=== PATIENT | female | born 1970 | race Caucasian/White ===

== ENCOUNTER 2016-08-07 03:12 | Inpatient (IN) | payer MEDICARE, OTHER ==
--- NOTE | 2016-08-07 03:35 | Emergency Department Record ---
History of Present Illness - General Chief complaint: Lower Extremity Pain Stated complaint: LEFT LEG PAIN Time Seen by Provider: 08/07/16 03:21 Source: Patient - History of Present Illness Initial comments: The patient states that she and her have been sick over the past 2 weeks with the same illness, mainly vomiting and diarrhea. On 08-03-16 she vomited, on 08-04-16 she vomited, and on 08-05 she developed redness on her left lower leg. She has not been able to eat much and her blood sugar began to read "high" when she checked it at that time also. Her states that typically her blood sugar runs in the 100's. She denies f,c,cough, st, abdominal pain, ear pain. She states she has been in a wound clinic in the past in the [facility] in the past. Location: Left, Lower Leg - Related Data Home Medications Medication Instructions Recorded Confirmed Last Taken Amlodipine Besylate [Amlodipine 10 mg PO DAILY 04/06/14 08/07/16 08/06/16 Besylate] Atorvastatin Calcium [Lipitor] 40 mg PO DAILY 04/06/14 08/07/16 08/06/16 Carvedilol [Carvedilol] 25 mg PO BID 04/06/14 08/07/16 08/06/16 Citalopram Hydrobromide 20 mg PO DAILY 04/06/14 08/07/16 08/06/16 [Citalopram HBr] Furosemide [Furosemide] 40 mg PO DAILY 04/06/14 08/07/16 08/06/16 Levothyroxine Sodium 75 mcg PO DAILY 04/06/14 08/07/16 08/06/16 Losartan Potassium [Losartan 100 mg PO DAILY 04/06/14 08/07/16 08/06/16 Potassium] Spironolactone [Spironolactone] 25 mg PO DAILY 04/06/14 08/07/16 08/06/16 Aspirin [Ecotrin] 325 mg PO DAILY 11/30/14 08/07/16 08/06/16 Loratadine [Claritin] 10 mg PO DAILY 11/30/14 08/07/16 08/06/16 Trazodone HCl [Desyrel] 50 mg PO QHS 11/30/14 08/07/16 08/06/16 Multivitamin [Multi-Vitamin Daily] 1 tab PO DAILY 01/25/15 08/07/16 08/06/16 Allergies Allergy/AdvReac Type Severity Reaction Status Date / Time azithromycin Allergy DIFFICULTY Verified 01/25/15 00:15 BREATHING cephalexin monohydrate Allergy DIFFICULTY Verified 01/25/15 00:15 [From Keflex] BREATHING codeine Allergy DIFFICULTY Verified 01/25/15 00:15 BREATHING Review of Systems Reviewed: No additional complaints except as noted below Constitutional: Reports: As per HPI. Denies: Chills, Fever, Malaise, Night sweats, Weakness, Weight change Eyes: Reports: As per HPI. Denies: Eye discharge, Eye pain, Photophobia, Vision change ENT: Reports: As per HPI. Denies: Congestion, Dental pain, Ear pain, Epistaxis , Hearing loss, Throat pain Respiratory: Reports: As per HPI. Denies: Cough, Dyspnea, Hemoptysis, Stridor, Wheezes Cardiovascular: Reports: As per HPI. Denies: Arrhythmia, Chest pain, Dyspnea on exertion, Edema, Murmurs, Orthopnea, Palpitations, Paroxysmal nocturnal dyspnea, Rheumatic Fever, Syncope Endocrine: Reports: As per HPI. Denies: Fatigue, Heat or cold intolerance, Polydipsia, Polyuria Gastrointestinal: Reports: As per HPI. Denies: Abdominal pain, Constipation, Diarrhea, Hematemesis, Hematochezia, Melena, Nausea, Vomiting Genitourinary: Reports: As per HPI. Denies: Abnormal menses, Discharge, Dyspareunia, Dysuria, Frequency, Hematuria, Incontinence, Retention, Urgency Musculoskeletal: Reports: As per HPI. Denies: Arthralgia, Back pain, Gout, Joint swelling, Myalgia, Neck pain Skin: Reports: As per HPI. Denies: Bruising, Change in color, Change in hair/ nails, Lesions, Pruritus, Rash Neurological: Reports: As per HPI. Denies: Abnormal gait, Confusion, Headache, Numbness, Paresthesias, Seizure, Tingling, Tremors, Vertigo, Weakness Psychiatric: Reports: As per HPI. Denies: Anxiety, Auditory hallucinations, Depression, Homicidal thoughts, Suicidal thoughts, Visual hallucinations Hematological/Lymphatic: Reports: As per HPI. Denies: Anemia, Blood Clots, Easy bleeding, Easy bruising, Swollen glands Past Medical History - SOCIAL HISTORY Smoking Status: Never smoker - RESPIRATORY Hx Respiratory Disorders: No - CARDIOVASCULAR Hx Cardio Disorders: Yes Hx Hypertension: Yes - NEURO Hx Neuro Disorders: Yes Hx CVA: Yes (2013) - GI Hx GI Disorders: No Hx Reflux: No - Hx Genitourinary Disorders: No - ENDOCRINE Hx Endocrine Disorders: Yes Hx Diabetes: Yes Hx Thyroid Disease: Yes - MUSCULOSKELETAL Hx Musculoskeletal Disorders: Yes Hx Arthritis: Yes - PSYCH Hx Psych Problems: Yes Hx Anxiety: Yes Hx Depression: Yes - HEMATOLOGY/ONCOLOGY Hx Hematology/Oncology Disorders: No Family Medical History Hx Diabetes: Father Hx Heart Disease: Father, Mother Physical Exam - General General Appearance: Alert, Oriented x3, Cooperative, No acute distress, Other ( morbid obesity) - Head Head exam: Normal inspection - Eye Eye exam: Normal appearance, PERRL Pupils: Normal accommodation - ENT ENT exam: Normal exam, Mucous membranes moist, Normal external ear exam, Normal orophraynx, TM's normal bilaterally Ear exam: Normal external inspection. negative: External canal tenderness Nasal Exam: Normal inspection. negative: Discharge, Sinus tenderness Mouth exam: Normal external inspection, Tongue normal Teeth exam: Normal inspection. negative: Dental caries Throat exam: Normal inspection. negative: Tonsillar erythema, Tonsillar exudate - Neck Neck exam: Normal inspection, Full ROM. negative: Tenderness - Respiratory Respiratory exam: Normal lung sounds bilaterally. negative: Respiratory distress - Cardiovascular Cardiovascular Exam: Regular rate, Normal rhythm, Normal heart sounds - GI/Abdominal GI/Abdominal exam: Soft, Normal bowel sounds. negative: Tenderness - Rectal Rectal exam: Deferred - exam: Deferred - Extremities Extremities exam: Normal inspection, Full ROM, Normal capillary refill, Other ( left lower leg with warmth, erythema, swelling. ). negative: Tenderness - Back Back exam: Reports: Normal inspection, Full ROM. Denies: Muscle spasm, Rash noted, Tenderness - Neurological Neurological exam: Alert, Normal gait, Oriented X3, Reflexes normal - Psychiatric Psychiatric exam: Normal affect, Normal mood - Skin Skin exam: Dry, Intact, Normal color, Warm Course - Reevaluation(s) Reevaluation #1: The reports that he has been the one to wrap her legs with special wrapping and sulfazalazine cream, but since he has been sick he has been unable to do it in the past few weeks. 08/07/16 03:45 Reevaluation #2: Patient is in agreement with admission. 08/07/16 05:04 Medical Decision Making - Lab Data Result diagrams: 08/07/16 03:49 08/07/16 03:49 Disposition Disposition: Admit Clinical Impression: Cellulitis of left lower extremity Disposition: Still a Patient at [facility] Decision to Admit: Admit from ER Decision to Admit Date: 08/07/16 Decision to Admit Time: 05:18 Accepting Physician: /Natalia Chowdhury Time Discussed w/Accepting Physician: 06:45 Condition: (1) Good
[2016-08-07 04:09] LABS: HEMATOCRIT 32.7 % (35.0-47.0); HEMOGLOBIN 10.7 gm/dl (11.6-16.0); MEAN CELL VOLUME 85.8 fl (81-97); MEAN CORPUSCULAR HGB CONC 32.7 g/dl (32-36); PLATELET COUNT 242 K/uL (130-400); RED BLOOD COUNT 3.81 M/uL (3.80-5.40); RED CELL DISTRIBUTION WIDTH 13.8 % (11.5-14.5); WHITE BLOOD COUNT W/O DIFF 12.2 K/uL (4.2-12.2)
[2016-08-07] MEDS ORDERED: 0.9 % SODIUM CHLORIDE 1,000 ML BAG IV ONE (04:15)
[2016-08-07] MEDS ORDERED: CLINDAMYCIN 600MG/4ML VIAL 600 MG in 0.9 % SODIUM CHLORIDE 100ML 100 ML IV ONE (04:18)
[2016-08-07 04:22] LABS: ACETONE,SERUM NEGATIVE (NEGATIVE)
[2016-08-07 04:27] LABS: URINE APPEARANCE CLEAR; URINE BILIRUBIN NEGATIVE (NEGATIVE); URINE BLOOD NEGATIVE (NEGATIVE); URINE COLOR YELLOW; URINE GLUCOSE (UA) NEGATIVE (NEGATIVE); URINE KETONE TRACE (NEGATIVE); URINE LEUKOCYTE ESTERASE NEGATIVE (NEGATIVE); URINE NITRITE NEGATIVE (NEGATIVE); URINE UROBILINOGEN 0.2 E.U./dL (0.20 - 1.00)
[2016-08-07 04:29] LABS: BLOOD UREA NITROGEN 26 mg/dL (7-17); CREATININE 1.3 mg/dL (0.52-1.04); EST GLOMERULAR FILTRATION RATE 46 ml/min; GLUCOSE,RANDOM 174 mg/dL (70-110)
[2016-08-07 04:30] LABS: LACTIC ACID 1.3 mmol/L (0.7-2.1); TROPONIN I < 0.012 ng/mL (0.00-0.034)
[2016-08-07] MEDS ORDERED: MORPHINE SULFATE 5 MG/ML PFS IVP ONE ×3 (04:54→11:05)
[2016-08-07] MEDS ORDERED: AL HYDROX/MAG HYDROX 30ML UD PO PRN (06:14)
[2016-08-07] MEDS ORDERED: CLINDAMYCIN IV SCH (06:14)
[2016-08-07] MEDS ORDERED: ACETAMINOPHEN 500 MG TABLET PO PRN (06:14)
[2016-08-07] MEDS ORDERED: SODIUM CHLORIDE 0.9% IV SCH (06:14)
[2016-08-07] MEDS: NYSTATIN 15 GM POWDER TP PRN ×2 (06:46→20:14)
[2016-08-07] MEDS ORDERED: MORPHINE SULFATE 5 MG/ML PFS IVP PRN (07:43)
[2016-08-07] MEDS: NOVOLOG FLEXPEN (INSULIN ASPART) 100 UNITS/ML SQ SCH ×3 (08:53→17:50)
[2016-08-07] MEDS: SPIRONOLACTONE 25 MG TAB PO SCH (10:47)
[2016-08-07] MEDS: MULTIVITAMINS/MINERALS TABLET PO SCH (10:47)
[2016-08-07] MEDS: LORATADINE 10 MG TABLET PO SCH (10:47)
[2016-08-07] MEDS: CARVEDILOL 12.5 MG TABLET PO SCH ×2 (10:48→22:45)
[2016-08-07] MEDS: ASPIRIN 325 MG TAB ENTERIC-COATED PO SCH (10:48)
[2016-08-07] MEDS: LOSARTAN POTASSIUM 100 MG TABLET PO SCH (10:49)
[2016-08-07] MEDS: AMLODIPINE BESYLATE 5MG TAB PO SCH (10:49)
[2016-08-07] MEDS: FUROSEMIDE 40 MG TABLET PO SCH (10:49)
[2016-08-07] MEDS: ATORVASTATIN 20 MG TABLET PO SCH (10:50)
[2016-08-07] MEDS: ENOXAPARIN 40 MG/0.4 ML SYR SQ SCH (10:50)
[2016-08-07] MEDS: CITALOPRAM 20 MG TABLET PO SCH (11:33)
[2016-08-07] MEDS: LEVOTHYROXINE SODIUM 75 MCG TABLET PO SCH (11:34)
[2016-08-07] MEDS: PANTOPRAZOLE SODIUM 40 MG TABLET PO SCH (11:34)
[2016-08-07] MEDS: CLINDAMYCIN 600MG/50ML PREMIX 50 ML IVPB SCH ×2 (12:28→20:01)
[2016-08-07] MEDS: MORPHINE SULFATE 5 MG/ML PFS IVP PRN ×5 (12:28→20:00)
--- NOTE | 2016-08-07 15:08 | History & Physical ---
History of Present Illness - Date of Service Date of Service for History & Physical: 08/07/16 - History of Present Illness Admitting Diagnosis: cellulitis left lower extremity; morbid obesity; diabetes History of Present Illness: 46 yo female admitted for cellulitis of LLE. PMHx of morbid obesity, IDDM type 2, hypertension, hyperlipidemia, hypothyroidism, seasonal allergies, depression , CVA in 2013 (deficits include declined eye sight and difficulty w/ comprehending), h/o DVT, history of LE cellulitis (patient believes last treatment for cellulitis was this past fall at [facility] wound clinic). Patient is A&O to person, place, date during exam though states her knows her health history better. Patient states that her and her have been sick for the past two weeks. Symptoms include N/V, diarrhea, abdominal cramping. Aggravate by nothing. Alleviated on it's own. Her last episode of vomiting was Monday. Patient's symptoms resolved, however she began to notice LLE swelling and redness. Noting this, she had her bring her to the ER. Her typically wraps both LE's, though for the past week or two, he's been sick and has not been doing this. Upon presentation to the ER, VSS. WBC 12.2, hgb 10.7, hct 32.7, plt 242, sodium 136, potassium 3.9, BUN 26, Cr. 1.3, glucose 174, lactic acid 1.3, troponin neg, BNP 815. UA negative for infection. LLE u/s ordered, however unable to be performed until monday. Noting LLE edema and erythema, patient admitted for IV antibiotics and further medical management. This morning, patient is lying in bed comfortably with LE's elevated. She denies fever, chills, n/v, abd pain, cough, sob, cp, dysuria, change in bowel or bladder functions, or headache. She admits to fatigue, contributing this to a long night in the ER. Aside from LLE edema/erythema, her other symptoms have resolved. She states she's had two episodes of lower extremity cellulitis similar to this in the past. Per patient, 6-7 years ago she was admitted to [facility] wound clinic and then this past fall at [facility], in [place], wound clinic. No recent travel or change in her medications. Sick contact includes her w/ a GI bug. PCP: Rosangela Butler M.D. Travel Screening - Travel/Exposure Within Last 30 Days Have you traveled within the last 30 days?: No - Travel/Exposure Within Last Year Have you traveled outside the [place] in the last year?: No - Additonal Travel Details Have you been exposed to anyone with a communicable illness?: No - Travel Symptoms Symptom Screening: None Review of Systems Constitutional: Reports: As per HPI. Denies: Chills, Fever, Malaise, Night sweats, Weakness, Weight change Eyes: Reports: As per HPI. Denies: Eye discharge, Eye pain, Photophobia, Vision change ENT: Reports: As per HPI. Denies: Congestion, Dental pain, Ear pain, Epistaxis , Hearing loss, Throat pain Respiratory: Reports: As per HPI. Denies: Cough, Dyspnea, Hemoptysis, Stridor, Wheezes Cardiovascular: Reports: As per HPI. Denies: Arrhythmia, Chest pain, Dyspnea on exertion, Edema, Murmurs, Orthopnea, Palpitations, Paroxysmal nocturnal dyspnea, Rheumatic Fever, Syncope Endocrine: Reports: As per HPI. Denies: Fatigue, Heat or cold intolerance, Polydipsia, Polyuria Gastrointestinal: Reports: As per HPI. Denies: Abdominal pain, Constipation, Diarrhea, Hematemesis, Hematochezia, Melena, Nausea, Vomiting Genitourinary: Reports: As per HPI. Denies: Abnormal menses, Discharge, Dyspareunia, Dysuria, Frequency, Hematuria, Incontinence, Retention, Urgency Musculoskeletal: Reports: As per HPI. Denies: Arthralgia, Back pain, Gout, Joint swelling, Myalgia, Neck pain Skin: Reports: As per HPI. Denies: Bruising, Change in color, Change in hair/ nails, Lesions, Pruritus, Rash Neurological: Reports: As per HPI. Denies: Abnormal gait, Confusion, Headache, Numbness, Paresthesias, Seizure, Tingling, Tremors, Vertigo, Weakness Psychiatric: Reports: As per HPI. Denies: Anxiety, Auditory hallucinations, Depression, Homicidal thoughts, Suicidal thoughts, Visual hallucinations Hematological/Lymphatic: Reports: As per HPI. Denies: Anemia, Blood Clots, Easy bleeding, Easy bruising, Swollen glands Past Medical History - SOCIAL HISTORY Smoking Status: Never smoker Alcohol Use: None Drug Use: None - RESPIRATORY Hx Respiratory Disorders: No - CARDIOVASCULAR Hx Cardio Disorders: Yes Hx Hypertension: Yes - NEURO Hx Neuro Disorders: Yes Hx CVA: Yes (2013) - GI Hx GI Disorders: No Hx Reflux: Yes - Hx Genitourinary Disorders: No - ENDOCRINE Hx Endocrine Disorders: Yes Hx Diabetes: Yes Hx Thyroid Disease: Yes - MUSCULOSKELETAL Hx Musculoskeletal Disorders: Yes Hx Arthritis: Yes - PSYCH Hx Psych Problems: Yes Hx Anxiety: Yes Hx Depression: Yes - HEMATOLOGY/ONCOLOGY Hx Hematology/Oncology Disorders: No Family Medical History Any Significant Family History?: Yes Hx Dementia: Father Hx Diabetes: Father Hx Heart Disease: Father, Mother H&P Meds/Allergies - Allergies Allergies: Allergies Allergy/AdvReac Type Severity Reaction Status Date / Time azithromycin Allergy DIFFICULTY Verified 01/25/15 00:15 BREATHING cephalexin monohydrate Allergy DIFFICULTY Verified 01/25/15 00:15 [From Keflex] BREATHING codeine Allergy DIFFICULTY Verified 01/25/15 00:15 BREATHING - Home Medications Home Medications Medication Instructions Recorded Confirmed Last Taken Amlodipine Besylate [Amlodipine 10 mg PO DAILY 04/06/14 08/07/16 08/06/16 Besylate] Atorvastatin Calcium [Lipitor] 40 mg PO DAILY 04/06/14 08/07/16 08/06/16 Carvedilol [Carvedilol] 25 mg PO BID 04/06/14 08/07/16 08/06/16 Citalopram Hydrobromide 40 mg PO DAILY 04/06/14 08/07/16 08/06/16 [Citalopram HBr] Furosemide [Furosemide] 40 mg PO DAILY 04/06/14 08/07/16 08/06/16 Levothyroxine Sodium 75 mcg PO DAILY 04/06/14 08/07/16 08/06/16 Losartan Potassium [Losartan 100 mg PO DAILY 04/06/14 08/07/16 08/06/16 Potassium] Spironolactone [Spironolactone] 25 mg PO DAILY 04/06/14 08/07/16 08/06/16 Aspirin [Ecotrin] 325 mg PO DAILY 11/30/14 08/07/16 08/06/16 Loratadine [Claritin] 10 mg PO DAILY 11/30/14 08/07/1617 Trazodone HCl [Desyrel] 200 mg PO QHS 11/30/14 08/07/16 08/06/16 Multivitamin [Multi-Vitamin Daily] 1 tab PO DAILY 01/25/15 08/07/16 08/06/16 Hydrocodone/Acetaminophen [Kirby 1 tab PO BID PRN 08/07/16 08/07/16 08/06/16 7.5mg/325mg] Omeprazole 20 mg PO DAILY 08/07/16 08/07/16 08/06/16 - Active Medications Active Medications: Current Medications Acetaminophen (Tylenol 500mg Tab) 500 mg PO Q6H PRN PRN Reason: PAIN/TEMP Al Hydroxide/Mg Hydroxide (Maalox) 30 ml PO Q4H PRN PRN Reason: GI UPSET Amlodipine Besylate (Norvasc) 10 mg PO DAILY [facility] Last Admin: 08/07/16 10:49 Dose: 10 mg Aspirin (Ecotrin (Ec)) 325 mg PO DAILY [facility] Last Admin: 08/07/16 10:48 Dose: 325 mg Atorvastatin Calcium (Lipitor) 40 mg PO DAILY [facility] Last Admin: 08/07/16 10:50 Dose: 40 mg Carvedilol (Coreg) 25 mg PO BID [facility] Last Admin: 08/07/16 10:48 Dose: 25 mg Citalopram Hydrobromide (Celexa) 20 mg PO DAILY [facility] Last Admin: 08/07/16 11:33 Dose: 20 mg Enoxaparin Sodium (Lovenox) 40 mg SQ DAILY [facility] Last Admin: 08/07/16 10:50 Dose: 40 mg Furosemide (Lasix) 40 mg PO DAILY [facility] Last Admin: 08/07/16 10:49 Dose: 40 mg Clindamycin Phosphate (Cleocin 600 [id number]) 50 mls @ 100 mls/hr IVPB Q8H [facility] Last Admin: 08/07/16 12:28 Dose: 100 mls/hr Insulin Aspart (Novolog Flexpen) 1 unit SQ TIDINS [facility] PRN Reason: Protocol Last Admin: 08/07/16 12:30 Dose: 10 unit Levothyroxine Sodium (Synthroid) 75 mcg PO DAILYTHY [facility] Last Admin: 08/07/16 11:34 Dose: 75 mcg Loratadine (Claritin) 10 mg PO DAILY [facility] Last Admin: 08/07/16 10:47 Dose: 10 mg Losartan Potassium (Losartan Potassium) 100 mg PO DAILY [facility] Last Admin: 08/07/16 10:49 Dose: 100 mg Morphine Sulfate (Morphine Sulfate) 2.5 mg IVP Q1H PRN PRN Reason: Pain - General Stop: 08/14/16 12:24 Last Admin: 08/07/16 13:20 Dose: 2.5 mg Multivitamins/Minerals (Centrum) 1 tab PO DAILY [facility] Last Admin: 08/07/16 10:47 Dose: 1 tab Nystatin (Nystop) 15 gm TP ASDIR PRN PRN Reason: RASH Last Admin: 08/07/16 06:46 Dose: 15 gm [facility]oprazole [facility]) [facility] Admin: 08/07/16 11:34 Dose: 40 mg Spironolactone (Aldactone) 25 mg PO DAILY [facility] Last Admin: 08/07/16 10:47 Dose: 25 mg Trazodone HCl (Desyrel) 50 mg PO QHS [facility] Physical Exam - Vital Signs Vital Signs: Vital Signs - Last 24 Hrs Temp Pulse Resp BP Pulse Ox 08/07/16 09:00 86 23 08/07/16 06:14 97.9 F 86 22 148/88 94 L 08/07/16 05:30 97.4 F L 84 18 109/63 93 L - General General Appearance: Alert, Oriented x3, Cooperative, No acute distress, Other ( morbid obesity) - Head Head exam: Normal inspection - Eye Eye exam: Normal appearance, PERRL Pupils: Normal accommodation - ENT ENT exam: Normal exam, Mucous membranes moist, Normal external ear exam, Normal orophraynx, TM's normal bilaterally Ear exam: Normal external inspection. negative: External canal tenderness Nasal Exam: Normal inspection. negative: Discharge, Sinus tenderness Mouth exam: Normal external inspection, Tongue normal Teeth exam: Normal inspection. negative: Dental caries Throat exam: Normal inspection. negative: Tonsillar erythema, Tonsillar exudate - Neck Neck exam: Normal inspection, Full ROM. negative: Tenderness - Respiratory Respiratory exam: Normal lung sounds bilaterally. negative: Respiratory distress - Cardiovascular Cardiovascular Exam: Regular rate, Normal rhythm, Normal heart sounds - GI/Abdominal GI/Abdominal exam: Soft, Normal bowel sounds. negative: Tenderness - Rectal Rectal exam: Deferred - exam: Deferred - Extremities Extremities exam: Normal inspection, Full ROM, Normal capillary refill, Pedal edema (+3 B/L, stasis dermatitis noted on RLE), Other (left lower leg with warmth, erythema, swelling. ). negative: Calf tenderness, Tenderness - Back Back exam: Reports: Normal inspection, Full ROM. Denies: Muscle spasm, Rash noted, Tenderness - Neurological Neurological exam: Alert, Normal gait, Oriented X3, Reflexes normal - Psychiatric Psychiatric exam: Normal affect, Normal mood - Skin Skin exam: Dry, Erythema (L and R LE), Intact, Normal color, Warm Results - Labs Result Diagrams: 08/07/16 03:49 08/07/16 03:49 Labs Last 24 Hours: Laboratory Results - last 24 hr 08/07/16 08/07/16 06:40 07:45 POC Glucose 207 H NT-Pro-B Natriuret Pep 815.00 H VTE H&P Assessment - Risk for VTE Risk for VTE: Yes Risk Level: High Risk Assessment Date: 08/07/16 Risk Assessment Time: 11:00 VTE Orders Placed or Will Be Placed: Yes Plan - Inpatient Certification Inpatient Certification: Admit to inpatient care: Based on my medical assessment, after consideration of patient's risk factors (age, co-morbidities and patient presenting symptoms and acuity), I expect that this patient will remain in the hospital greater than or equal to two midnights and that the services needed warrant inpatient care because: Patient Risk Factors: [] Estimated length of stay: [] The patient may reasonably be expected to be discharged or transferred to a hospital within 96 hours after admission to [facility]. Services needed: [] Post hospital care (if known): [] I certify that my determination is in accordance with my understanding of Medicare requirements for reasonable and necessary inpatient services. - Detailed Diagnosis and Plan (1) Cellulitis of left leg Current Visit: Yes Status: Acute Base Code: L03.116 - CELLULITIS OF LEFT LOWER LIMB Comment: 08/07/16: LLE cellulitis with worsening lymphedema. Lactic acid & WBC normal. Afebrile. Await LE doppler u/s results. Will check CRP and ESR. Continue IV Clindamycin 600 mg Q 8 hours. BNP elevated at 815. Will continue PO Lasix and Aldactone. Will wrap patient's LE's in CHRISTINE bandages and keep elevated to help with Lymphedema. No flucutance from site. Glucose control. Monitor site for worsening erythema/inflammation. (2) Insulin dependent diabetes mellitus Current Visit: Yes Status: Acute Base Code: E11.9 - TYPE 2 DIABETES MELLITUS WITHOUT COMPLICATIONS; Z79.4 - SNF (CURRENT) USE OF INSULIN Comment: 08/07/16: Continue home medications. Strict sliding scale. Accu checks [id number]. (3) DVT prophylaxis Current Visit: Yes Status: Acute Base Code: [id number] - Comment: 08/07/16: high risk- decreased mobility, weight, h/o CVA. Lovenox 40 mg sq daily. (4) Full code status Current Visit: Yes Status: Acute Base Code: Z78.9 - OTHER SPECIFIED HEALTH STATUS Comment: 08/07/16: patient is full code.
[2016-08-07] MEDS: TRAZODONE 50 MG TABLET PO SCH (22:45)
[2016-08-08] MEDS: CARVEDILOL 12.5 MG TABLET PO SCH ×3 (01:30→21:25)
[2016-08-08] MEDS: TRAZODONE 50 MG TABLET PO SCH ×2 (01:31→21:26)
[2016-08-08] MEDS: MORPHINE SULFATE 5 MG/ML PFS IVP PRN ×8 (01:38→21:23)
[2016-08-08] MEDS: CLINDAMYCIN 600MG/50ML PREMIX 50 ML IVPB SCH ×3 (03:58→19:46)
[2016-08-08] MEDS: PANTOPRAZOLE SODIUM 40 MG TABLET PO SCH (06:09)
[2016-08-08] MEDS: LEVOTHYROXINE SODIUM 75 MCG TABLET PO SCH (06:09)
[2016-08-08 06:22] LABS: BASO % 0.2 % (0-6); EOS % 0.3 % (0-6); GRAN % 77.4 % (47-80); HEMATOCRIT 29.9 % (35.0-47.0); HEMOGLOBIN 9.5 gm/dl (11.6-16.0); LYMPH % 10.8 % (16-45); MEAN CELL VOLUME 87.2 fl (81-97); MEAN CORPUSCULAR HGB CONC 31.8 g/dl (32-36); MEAN PLATELET VOLUME 10.9 fl (7.4-10.4); MONO % 11.3 % (0-9); PLATELET COUNT 231 K/uL (130-400); RED BLOOD COUNT 3.43 M/uL (3.80-5.40); WHITE BLOOD COUNT W/O DIFF 12.2 K/uL (4.2-12.2)
[2016-08-08 06:25] LABS: MEAN CORPUSCULAR HEMOGLOBIN 27.6 pg (27-33)
[2016-08-08 06:38] LABS: ANION GAP 13.6 (7-16); CARBON DIOXIDE 22.4 mmol/L (22-30); CREATININE 1.2 mg/dL (0.52-1.04)
[2016-08-08] MEDS: NOVOLOG FLEXPEN (INSULIN ASPART) 100 UNITS/ML SQ SCH ×3 (07:40→17:43)
[2016-08-08] MEDS: LOSARTAN POTASSIUM 100 MG TABLET PO SCH (09:53)
[2016-08-08] MEDS: AMLODIPINE BESYLATE 5MG TAB PO SCH (09:53)
[2016-08-08] MEDS: ATORVASTATIN 20 MG TABLET PO SCH (09:53)
[2016-08-08] MEDS: FUROSEMIDE 40 MG TABLET PO SCH (09:53)
[2016-08-08] MEDS: ENOXAPARIN 40 MG/0.4 ML SYR SQ SCH (09:54)
[2016-08-08] MEDS: MULTIVITAMINS/MINERALS TABLET PO SCH (09:54)
[2016-08-08] MEDS: ASPIRIN 325 MG TAB ENTERIC-COATED PO SCH (09:54)
[2016-08-08] MEDS: LORATADINE 10 MG TABLET PO SCH (09:54)
[2016-08-08] MEDS: CITALOPRAM 20 MG TABLET PO SCH (09:54)
[2016-08-08] MEDS: SPIRONOLACTONE 25 MG TAB PO SCH (09:54)
--- NOTE | 2016-08-08 11:55 | Physician Progress Note ---
Subjective - Date Date of Physician Progress Note: 08/08/16 - Subjective Subjective Comment: pt c/o LLE pain. she believes this was worsened follow doppler of area. swelling/erythema have improved with CHRISTINE bandage. her is bring sulfidine cream later today afebrile, no n/v/d/abd pain/cough. no new skin changes Objective - Vital Signs Vital Signs: Vital Signs - Last 24 Hrs Temp Pulse Resp BP BP Pulse Ox 08/08/16 10:45 98.8 F 117/75 08/08/16 09:00 92 H 24 08/08/16 06:00 98.8 F 79 22 117/75 94 L 08/07/16 20:00 99.3 F 86 20 122/67 91 L 08/07/16 14:14 98.3 F 88 20 112/68 92 L - General General Appearance: Alert, Oriented x3, Cooperative, No acute distress, Other ( morbid obesity) - Head Head exam: Normal inspection - Eye Eye exam: Normal appearance, PERRL Pupils: Normal accommodation - ENT ENT exam: Normal exam, Mucous membranes moist, Normal external ear exam, Normal orophraynx, TM's normal bilaterally Ear exam: Normal external inspection. negative: External canal tenderness Nasal Exam: Normal inspection. negative: Discharge, Sinus tenderness Mouth exam: Normal external inspection, Tongue normal Teeth exam: Normal inspection. negative: Dental caries Throat exam: Normal inspection. negative: Tonsillar erythema, Tonsillar exudate - Neck Neck exam: Normal inspection, Full ROM. negative: Tenderness - Respiratory Respiratory exam: Normal lung sounds bilaterally. negative: Respiratory distress - Cardiovascular Cardiovascular Exam: Regular rate, Normal rhythm, Normal heart sounds - GI/Abdominal GI/Abdominal exam: Soft, Normal bowel sounds. negative: Tenderness - Rectal Rectal exam: Deferred - exam: Deferred - Extremities Extremities exam: Normal inspection, Full ROM, Normal capillary refill, Pedal edema (+3 B/L, stasis dermatitis noted on RLE), Other (left lower leg with warmth, erythema, swelling. this has improved since yesterday.). negative: Calf tenderness, Tenderness - Back Back exam: Reports: Normal inspection, Full ROM. Denies: Muscle spasm, Rash noted, Tenderness - Neurological Neurological exam: Alert, Normal gait, Oriented X3, Reflexes normal - Psychiatric Psychiatric exam: Normal affect, Normal mood - Skin Skin exam: Dry, Erythema (L and R LE), Intact, Normal color, Warm Assessment and Plan - Assessment and Plan (1) Cellulitis of left leg Current Visit: Yes Status: Acute Base Code: L03.116 - CELLULITIS OF LEFT LOWER LIMB Comment: 08/08/16: - LLE cellulitis with worsening lymphedema. - Lactic acid & WBC normal. Afebrile. - LLE doppler: unable to assess from knee down. femoral, saphenous, and popliteal negative for blood clot. - CRP, ESR both significantly elevated. - Continue IV Clindamycin 600 mg Q 8 hours. - BNP elevated at 815. Will continue PO Lasix and Aldactone (patient was vomiting prior to admission and may not have been keeping medication down). - Continue to use CHRISTINE bandages on LE's. Keep elevated to help with Lymphedema. Will use Silvadene cream once patient's brings this in later today. - Still no flucutance from site. Area seeping, I supect due to inflammation/ swelling. - encouraged strict glucose control. - continue current IV pain control. - Monitor site for worsening erythema/inflammation. Will check sed rate/crp/wbc daily. (2) Insulin dependent diabetes mellitus Current Visit: Yes Status: Acute Base Code: E11.9 - TYPE 2 DIABETES MELLITUS WITHOUT COMPLICATIONS; Z79.4 - FDC (CURRENT) USE OF INSULIN Comment: 08/08/16: Continue home medications. Strict sliding scale. Accu checks achqhs. (3) DVT prophylaxis Current Visit: Yes Status: Acute Base Code: [id number] - Comment: 08/08/16: high risk- decreased mobility, weight, h/o CVA. Lovenox 40 mg sq daily. (4) Full code status Current Visit: Yes Status: Acute Base Code: Z78.9 - OTHER SPECIFIED HEALTH STATUS Comment: 08/08/16: patient is full code. Results - Labs Result Diagrams: 08/08/16 06:00 08/08/16 06:30 Labs Last 24 Hours: Laboratory Results - last 24 hr 08/07/16 08/07/16 08/08/16 11:50 17:00 06:00 WBC 12.2 RBC 3.43 L Hgb 9.5 L Hct 29.9 L MCV 87.2 MCH 27.6 MCHC 31.8 L RDW 14.0 Plt Count 231 MPV 10.9 H Gran % 77.4 Lymphocytes % 10.8 L Monocytes % 11.3 H Eosinophils % 0.3 Basophils % 0.2 ESR Sodium Potassium Chloride Carbon Dioxide Anion Gap BUN Creatinine Estimated GFR POC Glucose 191 H 167 H Random Glucose Calcium C-Reactive Protein 08/08/16 08/08/16 08/08/16 06:00 06:00 06:30 WBC RBC Hgb Hct MCV MCH MCHC RDW Plt Count MPV Gran % Lymphocytes % Monocytes % Eosinophils % Basophils % ESR 94 H Sodium 137 Potassium 3.6 Chloride 101 Carbon Dioxide 22.4 Anion Gap 13.6 BUN 17 Creatinine 1.2 H Estimated GFR 51 POC Glucose Random Glucose 183 H Calcium 8.6 C-Reactive Protein 22.6 H 08/08/16 07:45 WBC RBC Hgb Hct MCV MCH MCHC RDW Plt Count MPV Gran % Lymphocytes % Monocytes % Eosinophils % Basophils % ESR Sodium Potassium Chloride Carbon Dioxide Anion Gap BUN Creatinine Estimated GFR POC Glucose 179 H Random Glucose Calcium C-Reactive Protein DVT/PE Assessment - Risk for VTE Risk for VTE: No Risk Level: High Risk Assessment Date: 08/07/16 Risk Assessment Time: 11:00 VTE Orders Placed or Will Be Placed: Yes - VTE Confirmation VTE Confirmed w/Diagnostic Imaging Test: No - Active Medicaitons Current Medications: Current Medications Acetaminophen (Tylenol 500mg Tab) 500 mg PO Q6H PRN PRN Reason: PAIN/TEMP Al Hydroxide/Mg Hydroxide (Maalox) 30 ml PO Q4H PRN PRN Reason: GI UPSET Amlodipine Besylate (Norvasc) 10 mg PO DAILY [facility] Last Admin: 08/08/16 09:53 Dose: 10 mg Aspirin (Ecotrin (Ec)) 325 mg PO DAILY [facility] Last Admin: 08/08/16 09:54 Dose: 325 mg Atorvastatin Calcium (Lipitor) 40 mg PO DAILY [facility] Last Admin: 08/08/16 09:53 Dose: 40 mg Carvedilol (Coreg) 25 mg PO BID [facility] Last Admin: 08/08/16 09:54 Dose: 25 mg Citalopram Hydrobromide (Celexa) 20 mg PO DAILY [facility] Last Admin: 08/08/16 09:54 Dose: 20 mg Enoxaparin Sodium (Lovenox) 40 mg SQ DAILY [facility] Last Admin: 08/08/16 09:54 Dose: 40 mg Furosemide (Lasix) 40 mg PO DAILY [facility] Last Admin: 08/08/16 09:53 Dose: 40 mg Clindamycin Phosphate (Cleocin 600 [id number]) 50 mls @ 100 mls/hr IVPB Q8H [facility] Last Admin: 08/08/16 03:58 Dose: 100 mls/hr Insulin Aspart (Novolog Flexpen) 1 unit SQ TIDINS [facility] PRN Reason: Protocol Last Admin: 08/08/16 07:40 Dose: 10 unit Levothyroxine Sodium (Synthroid) 75 mcg PO DAILYTHY [facility] Last Admin: 08/08/16 06:09 Dose: 75 mcg Loratadine (Claritin) 10 mg PO DAILY [facility] Last Admin: 08/08/16 09:54 Dose: 10 mg Losartan Potassium (Losartan Potassium) 100 mg PO DAILY [facility] Last Admin: 08/08/16 09:53 Dose: 100 mg Morphine Sulfate (Morphine Sulfate) 2.5 mg IVP Q1H PRN PRN Reason: Pain - General Stop: 08/14/16 12:24 Last Admin: 08/08/16 10:40 Dose: 2.5 mg Multivitamins/Minerals (Centrum) 1 tab PO DAILY [facility] Last Admin: 08/08/16 09:54 Dose: 1 tab Nystatin (Nystop) 15 gm TP ASDIR PRN PRN Reason: RASH Last Admin: 08/07/16 20:14 Dose: 15 gm Pantoprazole Sodium (Protonix) 40 mg PO DAILYAC [facility] Last Admin: 08/08/16 06:09 Dose: 40 mg Spironolactone (Aldactone) 25 mg PO DAILY [facility] Last Admin: 08/08/16 09:54 Dose: 25 mg Trazodone HCl (Desyrel) 50 mg PO QHS [facility] Last Admin: 08/08/16 01:31 Dose: 50 mg AMI Plan - Labs Result Diagrams: 08/08/16 06:00 08/08/16 06:30
[2016-08-08] MEDS: NYSTATIN 15 GM POWDER TP PRN (21:25)
[2016-08-09] MEDS: MORPHINE SULFATE 5 MG/ML PFS IVP PRN ×3 (01:41→08:44)
[2016-08-09] MEDS: CLINDAMYCIN 600MG/50ML PREMIX 50 ML IVPB SCH ×3 (03:43→19:33)
[2016-08-09] MEDS: LEVOTHYROXINE SODIUM 75 MCG TABLET PO SCH ×2 (04:55→08:45)
[2016-08-09] MEDS: PANTOPRAZOLE SODIUM 40 MG TABLET PO SCH ×2 (04:55→08:45)
[2016-08-09 06:17] LABS: HEMATOCRIT 29.9 % (35.0-47.0); HEMOGLOBIN 9.8 gm/dl (11.6-16.0); MEAN CELL VOLUME 85.7 fl (81-97); MEAN CORPUSCULAR HGB CONC 32.8 g/dl (32-36); MEAN PLATELET VOLUME 10.5 fl (7.4-10.4); PLATELET COUNT 264 K/uL (130-400); RED BLOOD COUNT 3.49 M/uL (3.80-5.40); WHITE BLOOD COUNT W/O DIFF 13.2 K/uL (4.2-12.2)
[2016-08-09 06:29] LABS: ANION GAP 12.9 (7-16); CARBON DIOXIDE 24.1 mmol/L (22-30); CREATININE 1.1 mg/dL (0.52-1.04)
[2016-08-09 06:35] LABS: HYPOCHROMIA 1+; PLATELET ESTIMATE NORMAL (NORMAL)
--- NOTE | 2016-08-09 07:33 | US VENOUS DOPPLER REPORT ---
EXAM: DUPLEX DOPPLER ULTRASOUND EXAMINATION OF THE LEFT LOWER EXTREMITY VEINS HISTORY: LEFT LEG CELLULITIS. TECHNIQUE: Real-time matthews scale and Duplex Doppler ultrasound examination of the left lower extremity veins were performed. Comparison: 07/02/14. FINDINGS: The examination is limited due to patient's body habitus. The patient was in isolation. Technologist was unable to visualize or get a good augmentation distal to the common femoral and greater saphenous veins. The contour, caliber and flow within the left common femoral and greater saphenous veins are within normal limits. Augmentation within the left common femoral and greater saphenous veins are within normal limits. The popliteal vein is somewhat visualized. The popliteal vein demonstrates normal compression. Veins distal to the left knee are unable to be visualized due to bandaging and open wounds. IMPRESSION: NO SONOGRAPHIC EVIDENCE OF A DEEP VENOUS THROMBOSIS WITHIN THE LEFT GREATER SAPHENOUS AND COMMON FEMORAL VEIN. THE LEFT POPLITEAL VEIN IS UNREMARKABLE. NOTED ABOVE, THE VEINS DISTAL TO THE LEFT KNEE ARE NOT VISUALIZED. JOB NUMBER: [id number] MTDD
[2016-08-09] MEDS: NOVOLOG FLEXPEN (INSULIN ASPART) 100 UNITS/ML SQ SCH ×3 (08:45→18:52)
[2016-08-09] MEDS: HYDROCODONE/APAP 10/325 TABLET PO PRN ×3 (10:31→19:33)
[2016-08-09] MEDS: MULTIVITAMINS/MINERALS TABLET PO SCH (10:31)
[2016-08-09] MEDS: CITALOPRAM 20 MG TABLET PO SCH (10:32)
[2016-08-09] MEDS: SPIRONOLACTONE 25 MG TAB PO SCH (10:32)
[2016-08-09] MEDS: ASPIRIN 325 MG TAB ENTERIC-COATED PO SCH (10:32)
[2016-08-09] MEDS: LORATADINE 10 MG TABLET PO SCH (10:33)
[2016-08-09] MEDS: ENOXAPARIN 40 MG/0.4 ML SYR SQ SCH (10:33)
[2016-08-09] MEDS: ATORVASTATIN 20 MG TABLET PO SCH (10:33)
--- NOTE | 2016-08-09 10:33 | Physician Progress Note ---
Subjective - Date Date of Physician Progress Note: 08/09/16 - Subjective Subjective Comment: 08/09/16- Patient is lying in bed at time of exam. She continues to report pain in the LLE about the same as yesterday but she thinks the redness and swelling have improved. She is still having a difficult time bearing weight on the leg 2/ 2 pain. She denies fever, chills, or further N/V. Objective - Vital Signs Vital Signs: Vital Signs - Last 24 Hrs Temp Pulse Resp BP BP Pulse Ox 08/09/16 06:00 98.2 F 79 22 104/52 93 L 08/08/16 21:00 98.1 F 79 22 114/66 95 08/08/16 20:14 24 08/08/16 14:00 98.4 F 80 20 108/65 94 L 08/08/16 10:45 98.8 F 117/75 - General General Appearance: Alert, Oriented x3, Cooperative, No acute distress, Other ( morbid obesity) - Head Head exam: Normal inspection - Eye Eye exam: Normal appearance, PERRL Pupils: Normal accommodation - ENT ENT exam: Normal exam, Mucous membranes moist, Normal external ear exam, Normal orophraynx, TM's normal bilaterally Ear exam: Normal external inspection. negative: External canal tenderness Nasal Exam: Normal inspection. negative: Discharge, Sinus tenderness Mouth exam: Normal external inspection, Tongue normal Teeth exam: Normal inspection. negative: Dental caries Throat exam: Normal inspection. negative: Tonsillar erythema, Tonsillar exudate - Neck Neck exam: Normal inspection, Full ROM. negative: Tenderness - Respiratory Respiratory exam: Normal lung sounds bilaterally. negative: Respiratory distress - Cardiovascular Cardiovascular Exam: Regular rate, Normal rhythm, Normal heart sounds - GI/Abdominal GI/Abdominal exam: Soft, Normal bowel sounds. negative: Tenderness - Rectal Rectal exam: Deferred - exam: Deferred - Extremities Extremities exam: Normal inspection, Full ROM, Normal capillary refill, Pedal edema (2+ B/L pitting edema; stasis dermatitis ), Tenderness (TTP along LLE ), Other (left lower leg with warmth, erythema, swelling which have all improved since yesterday.). negative: Calf tenderness - Back Back exam: Reports: Normal inspection, Full ROM. Denies: Muscle spasm, Rash noted, Tenderness - Neurological Neurological exam: Alert, Normal gait, Oriented X3, Reflexes normal - Psychiatric Psychiatric exam: Normal affect, Normal mood - Skin Skin exam: Dry, Erythema (L and R LE), Intact, Normal color, Warm Assessment and Plan - Inpatient Certification Inpatient Certification: risk factors: age, cellulitis of the LLE, history or previous hospitalizations for cellulitis Services needed: IV antibiotics, compression wrapping Duration: 72-96H Post-hospital: may need JESUS 08/09/16 10:35 - Assessment and Plan (1) Cellulitis of left leg Current Visit: Yes Status: Acute Base Code: L03.116 - CELLULITIS OF LEFT LOWER LIMB Comment: 08/09/16: Improving clinically. Decreased erythema and swelling today. There remains a large area of erythema with minimal warmth and induration over the anterior chan. There is also linear erythema along the folds of the left great toe. LLE doppler: unable to assess from knee down. femoral, saphenous, and popliteal negative for blood clot. WBC count up slightly to 13.2. CRP and ESR remain elevated but stable. Patient remains afebrile - Continue IV Clindamycin 600 mg Q 8 hours. - Will continue PO Lasix and Aldactone - Continue to use CHRISTINE bandages on LE's. Keep elevated to help with Lymphedema. Will use Silvadene cream once patient's brings this in later today. - encouraged strict glucose control. - transition to oral hydrocodone 10/325mg po q6H prn severe pain - Monitor site for worsening erythema/inflammation. Will check sed rate/crp/wbc daily. (2) Insulin dependent diabetes mellitus Current Visit: Yes Status: Acute Base Code: E11.9 - TYPE 2 DIABETES MELLITUS WITHOUT COMPLICATIONS; Z79.4 - ASSISTED (CURRENT) USE OF INSULIN Comment: 08/09/16: Continue home medications. Strict sliding scale. Accu checks achqhs. (3) DVT prophylaxis Current Visit: Yes Status: Acute Base Code: [id number] - Comment: 08/09/16: high risk- decreased mobility, weight, h/o CVA. Lovenox 40 mg sq daily. (4) Full code status Current Visit: Yes Status: Acute Base Code: Z78.9 - OTHER SPECIFIED HEALTH STATUS Comment: 08/09/16: patient is full code. Results - Labs Result Diagrams: 08/09/16 06:05 08/09/16 06:05 Labs Last 24 Hours: Laboratory Results - last 24 hr 08/08/16 08/08/16 08/08/16 07:45 11:30 17:00 WBC RBC Hgb Hct MCV MCH MCHC RDW Plt Count MPV Neutrophils % Band Neutrophils % Lymphocytes % Monocytes % Eosinophils % Basophils % Platelet Estimate Hypochromasia ESR Sodium Potassium Chloride Carbon Dioxide Anion Gap BUN Creatinine Estimated GFR POC Glucose 179 H 219 H 235 H Random Glucose Calcium C-Reactive Protein 08/09/16 08/09/16 08/09/16 06:05 06:05 06:05 WBC 13.2 H RBC 3.49 L Hgb 9.8 L Hct 29.9 L MCV 85.7 MCH 28.0 MCHC 32.8 RDW 14.0 Plt Count 264 MPV 10.5 H Neutrophils % 75.0 Band Neutrophils % 1.0 Lymphocytes % 19.0 Monocytes % 4.0 Eosinophils % 1.0 Basophils % Not Reportable Platelet Estimate Normal Hypochromasia 1+ ESR 98 H Sodium 136 Potassium 3.7 Chloride 99 Carbon Dioxide 24.1 Anion Gap 12.9 BUN 15 Creatinine 1.1 H Estimated GFR 56 POC Glucose Random Glucose 200 H Calcium 8.4 L C-Reactive Protein 08/09/16 06:05 WBC RBC Hgb Hct MCV MCH MCHC RDW Plt Count MPV Neutrophils % Band Neutrophils % Lymphocytes % Monocytes % Eosinophils % Basophils % Platelet Estimate Hypochromasia ESR Sodium Potassium Chloride Carbon Dioxide Anion Gap BUN Creatinine Estimated GFR POC Glucose Random Glucose Calcium C-Reactive Protein 22.8 H DVT/PE Assessment - Risk for VTE Risk for VTE: No Risk Level: High Risk Assessment Date: 08/07/16 Risk Assessment Time: 11:00 VTE Orders Placed or Will Be Placed: Yes - Active Medicaitons Current Medications: Current Medications Acetaminophen (Tylenol 500mg Tab) 500 mg PO Q6H PRN PRN Reason: PAIN/TEMP Acetaminophen/Hydrocodone Bitart (Lavon 10mg/325mg) 1 each PO Q6H PRN PRN Reason: Pain - Severe (8-10) Al Hydroxide/Mg Hydroxide (Maalox) 30 ml PO Q4H PRN PRN Reason: GI UPSET Amlodipine Besylate (Norvasc) 10 mg PO DAILY [facility] Last Admin: 08/08/16 09:53 Dose: 10 mg Aspirin (Ecotrin (Ec)) 325 mg PO DAILY [facility] Last Admin: 08/08/16 09:54 Dose: 325 mg Atorvastatin Calcium (Lipitor) 40 mg PO DAILY [facility] Last Admin: 08/08/16 09:53 Dose: 40 mg Carvedilol (Coreg) 25 mg PO BID [facility] Last Admin: 08/08/16 21:25 Dose: 25 mg Citalopram Hydrobromide (Celexa) 20 mg PO DAILY [facility] Last Admin: 08/08/16 09:54 Dose: 20 mg Clotrimazole (Lotrimin Af) 1 gm TP BID [facility] Enoxaparin Sodium (Lovenox) 40 mg SQ DAILY [facility] Last Admin: 08/08/16 09:54 Dose: 40 mg Furosemide (Lasix) 40 mg PO DAILY [facility] Last Admin: 08/08/16 09:53 Dose: 40 mg Clindamycin Phosphate (Cleocin 600 Jr-O1d-Tzojeq) 50 mls @ 100 mls/hr IVPB Q8H [facility] Last Admin: 08/09/16 03:43 Dose: 100 mls/hr Insulin Aspart (Novolog Flexpen) 1 unit SQ TIDINS [facility] PRN Reason: Protocol Last Admin: 08/09/16 08:45 Dose: 10 unit Levothyroxine Sodium (Synthroid) 75 mcg PO DAILYTHY [facility] Last Admin: 08/09/16 08:45 Dose: Not Given Loratadine (Claritin) 10 mg PO DAILY [facility] Last Admin: 08/08/16 09:54 Dose: 10 mg Losartan Potassium (Losartan Potassium) 100 mg PO DAILY [facility] Last Admin: 08/08/16 09:53 Dose: 100 mg Multivitamins/Minerals (Centrum) 1 tab PO DAILY [facility] Last Admin: 08/08/16 09:54 Dose: 1 tab Nystatin (Nystop) 15 gm TP ASDIR PRN PRN Reason: RASH Last Admin: 08/08/16 21:25 Dose: 15 gm Pantoprazole Sodium (Protonix) 40 mg PO DAILYAC [facility] Last Admin: 08/09/16 08:45 Dose: Not Given Spironolactone (Aldactone) 25 mg PO DAILY [facility] Last Admin: 08/08/16 09:54 Dose: 25 mg Trazodone HCl (Desyrel) 50 mg PO QHS [facility] Last Admin: 08/08/16 21:26 Dose: 50 mg AMI Plan - Labs Result Diagrams: 08/09/16 06:05 08/09/16 06:05
[2016-08-09] MEDS: FUROSEMIDE 40 MG TABLET PO SCH (10:34)
[2016-08-09] MEDS: AMLODIPINE BESYLATE 5MG TAB PO SCH (10:42)
[2016-08-09] MEDS: CARVEDILOL 12.5 MG TABLET PO SCH ×2 (10:42→22:57)
[2016-08-09] MEDS: LOSARTAN POTASSIUM 100 MG TABLET PO SCH (10:42)
--- NOTE | 2016-08-09 11:57 | Rehab Evaluation ---
Patient Information - Patient Information Diagnosis: L LE cellulitis Ordered Treatment: PT Evaluate and Treat Status: Initial Evaluation Surgery: No History: Detail (Patient was admitted to the ER on 08/07/16 with complaints of L LE pain with a final diagnosis of cellulitis.) Past Medical/Surgical Hx: PAST MEDICAL/SURGICAL HISTORY Past Surgical History aneurysm with shunt L foot csection PMH - Respiratory Hx Respiratory Disorders No PMH - Cardiovascular Hx Cardiovascular Disorders Yes Hx Hypertension Yes PMH - Neuro Hx Neurological Disorders Yes Hx Cerebrovascular Accident Yes: 2013 PMH - GI Hx Gastrointestinal Disorders No Hx Gastroesophageal Reflux Yes PMH - Hx Genitourinary Disorders No Patient No PMH - Endocrine Hx Endocrine Disorders Yes Hx Diabetes Yes Hx Thyroid Disease Yes PMH - Musculoskeletal Hx Musculoskeletal Disorders Yes Hx Arthritis Yes PMH - Psych Hx Psychiatric Problems Yes Hx Anxiety Yes Hx Depression Yes PMH - Hematology/Oncology Hx Hematology/Oncology No Disorders Premorbid Status: Detail (Patient reports she was independent with dressing, eating, and bathing prior to her L LE cellulitis. She typically eats microwave meals and can fix them herself. Mentioned assists her out of the tub, but she is able to transfer into the tub without assistance. Independent with ambulation and typically stands up with bathing. Reports no fall in the past 6 months.) Social History: Detail (Patient lives in a 2-story home with her , but exclusively utilizes the main floor. There are four steps with B handrails to enter her home.) Precautions: [place] - Time With Patient Total Time Spent With Patient (Min): 45 (PT and OT evaluation performed; implemented contact precautions per protocol) Treatment Procedures: Detail Subjective Information - Subjective Information Per Patient Objective Data - Pain Pain Present: No (At start of treatment session, patient reported she had her pain medication a half hour ago and does not feel pain at rest.) Pain Intensity: 0 - Mental Status Patient Orientation: Oriented x3 - Visual Perception Appears within normal limits for therapeutic activities (Not formally assessed.) - ROM Other (LE ROM considered WFL aside from L ankle DF/PF, which she was unable to perform due to swelling and pain. Unable to attain ROM WNL due to patient's body habitus, but available ROM is considered functional.) - Strength/Tone Other (MMT performed at EOB and to patient's pain tolerance. Unable to perform MMT on L ankle due to pain from cellulitis. Patient's R LE strength measured 5/ 5 for knee flexion/extension and PF/DF. Patient was able to flex R and L hip in a partial range against gravity. B hip adduction measured 4/5 and B hip abduction was 3+/5 (in seated position).) - Coordination Appears within normal limits for therapeutic activities (Able to don sock with adequate coordination and balance.) - Bed Mobility Independent (Patient was able to move to EOB independently and safely.) - Transfers Needs Assist (Did not assess assistance required for transfers due to pain exacerbation with WB and lack of suitable equipment to accomodate patient size.) - Balance Balance Sitting: Good (Patient donned her R sock while sitting on EOB without LOB or need for UE support.) - Gait Detail (Unable to perform gait assessment due to pain from cellulitis.) - ADL's/IADL's Detail (Patient demonstrated independence donning her R sock, but required assistance with L sock due to pain.) - Special Tests No Therapy Assessment - Therapy Assessment Detail (Patient presents with L lower leg pain, swelling and rubor that influences her tolerance to weight-bearing activities. As a result, patient is generally deconditioned in LE L > R. Patient would benefit from an HEP to address LE weakness and maintain available ROM. Consider patient a sub-acute rehab patient candidate to return to prior level of function. Recommend a sub- acute facility that can accomodate her bariatric equipment needs.) Patient Education - Patient Education Teaching Topic: Exercise/Activity (Patient was instructed on general LE mobility and strengthening exercises to reduce functional decline associated with bed rest while she heals.) Response: Return Demonstration, Verbalize Understanding Teaching Method: Discussion, Demonstration Teaching Recipient: Patient Barriers To Learning: None, Other (Patient's L LE pain restricts her ability to participate in PT, namely WB activities.) Problem List - Problem List Physical Therapy Problem List: Detail (1) L lower leg pain and swelling affecting AROM of L ankle. 2) Reduced tolerance to weight-bearing activities due to pain. 3) Generalized LE deconditioning L > R due to acute dx of cellulitis 4) Lack of a HEP to return to premorbid functional status.) Goals - Goals Physical Therapy Goals: 1) Patient will be able to achieve L AROM DF and PF WFL. 2) Patient will be able to perform HEP independently with appropriate form. 3) Patient will be able to partial weight-bear 25-50% of BW on L LE. 4) Patient will demonstrate safe transfer from bed to chair with minimal assistance x2. Prognosis - Prognosis Moderate (Pending resolution of cellulitis and control of LE pain, patient most likely will regain premorbid functional status.) Plan - Plan Physical Therapy Plan: PT M-F for general LE AROM and strengthening, desensitization exercises to reduce pain and increase tolerance to WB, WBAT in standing progressing to ambulation with or without an assistive device, and transfer training.
[2016-08-09] MEDS: CLOTRIMAZOLE 1% 30 GM CREAM TP SCH ×2 (12:06→22:57)
--- NOTE | 2016-08-09 13:22 | Rehab Evaluation ---
Patient Information - Patient Information Diagnosis: Cellulitis left LE, morbid obesity, diabetes Ordered Treatment: OT Evaluate and Treat Status: Initial Evaluation Surgery: No History: Detail (Patient was admitted to the ER on 08/07/16 with complaints of L LE pain with a final diagnosis of cellulitis.) Past Medical/Surgical Hx: PAST MEDICAL/SURGICAL HISTORY Past Surgical History aneurysm with shunt L foot csection PMH - Respiratory Hx Respiratory Disorders No PMH - Cardiovascular Hx Cardiovascular Disorders Yes Hx Hypertension Yes PMH - Neuro Hx Neurological Disorders Yes Hx Cerebrovascular Accident Yes: 2013 PMH - GI Hx Gastrointestinal Disorders No Hx Gastroesophageal Reflux Yes PMH - Hx Genitourinary Disorders No Patient No PMH - Endocrine Hx Endocrine Disorders Yes Hx Diabetes Yes Hx Thyroid Disease Yes PMH - Musculoskeletal Hx Musculoskeletal Disorders Yes Hx Arthritis Yes PMH - Psych Hx Psychiatric Problems Yes Hx Anxiety Yes Hx Depression Yes PMH - Hematology/Oncology Hx Hematology/Oncology No Disorders Premorbid Status: Detail (Patient reports she was independent with dressing, eating, and showering prior to this exacerbation of L LE cellulitis. She showers in standing in a tub/shower combination. She is Ind transferring into the tub but requires assistance from her spouse to transfer out of tub. She typically eats microwave meals and can fix them herself. She was independent with ambulation without any assistive device. Reports no fall in the past 6 months.) Social History: Detail (Patient lives with her spouse in a 2-story home with basement, she only utilizes the main floor. There are four steps with Dejon handrails to enter her home. Her toilet is standard height without grab bars and she has a tub/shower combination. She does not have any adaptive equipment or mobility devices.) Precautions: [place], Fall, Other (Isolation precautions) - Time With Patient Total Time Spent With Patient (Min): 35 Treatment Procedures: Detail (OT eval - low complexity) Subjective Information - Subjective Information Per Patient Objective Data - Pain Pain Present: No (Pt reports no pain currently although she states she recently took some pain meds.) - Mental Status Patient Orientation: Oriented x3 - Visual Perception Deficit (Pt reports she wears glasses at all times, she has a history of visual deficits due to her past CVA.) - ROM Within normal limits (Dejon UE AROM grossly WNL) - Strength/Tone Within normal limits (De[place] UE MMT 4+/5 throughout) - Coordination Appears within normal limits for therapeutic activities - Bed Mobility Independent (Ind with supine to sit and sit to supine including scooting up in bed.) - Transfers Dependent (Pt unable to perform a transfer at this time. She reports the pain in her left LE prevents her from bearing weight.) - Balance Balance Sitting: Good - Sensation Intact - Gait Detail (Pt is unable to ambulate at this time due to left LE pain.) - ADL's/IADL's Detail (Pt is able to eat Indly, she was able to don right slipper but required max assist for left slipper. She is currently using the bedpan for toileting and nursing is completing all self cares.) Therapy Assessment - Therapy Assessment Detail (Pt presents with significantly decreased functional status/ADLs and mobility due to left LE pain.) Problem List - Problem List Physical Therapy Problem List: Detail (1) L lower leg pain and swelling affecting AROM of L ankle. 2) Reduced tolerance to weight-bearing activities due to pain. 3) Generalized LE deconditioning L > R due to acute dx of cellulitis 4) Lack of a HEP to return to premorbid functional status.) Occupational Therapy Problem List: Detail (1. Decreased Ind with functional mobility needed for safe and Ind self cares. 2. Decreased Ind with toileting 3. Decreased Ind with showering 4. Decreased Ind with dressing 5. Decreased overall endurance needed for safe and Ind ADLs) Goals - Goals Occupational Therapy Goals: 1. Pt will be Ind with transfers and mobility needed to perform self care activities. 2. Pt will be Ind with toileting 3. Pt will be Ind with showering in standing 4. Pt will be Ind with total body dressing 5. Pt will demonstrate improved endurance needed for safe and Ind self cares and functional mobility Prognosis - Prognosis Moderate Plan - Plan Physical Therapy Plan: PT M-F to address goals outlined above. Occupational Therapy Plan: OT 2-4 times weekly to address self cares, functional mobility and overall activity tolerance to allow safe return home with spouse.
[2016-08-09] MEDS: TRAZODONE 50 MG TABLET PO SCH (22:57)
[2016-08-10] MEDS: HYDROCODONE/APAP 10/325 TABLET PO PRN ×2 (02:30→08:19)
[2016-08-10] MEDS: CLINDAMYCIN 600MG/50ML PREMIX 50 ML IVPB SCH ×3 (04:58→20:13)
[2016-08-10] MEDS: LEVOTHYROXINE SODIUM 75 MCG TABLET PO SCH ×2 (04:59→06:01)
[2016-08-10] MEDS: PANTOPRAZOLE SODIUM 40 MG TABLET PO SCH ×2 (04:59→06:01)
[2016-08-10 06:33] LABS: HEMATOCRIT 33.7 % (35.0-47.0); HEMOGLOBIN 10.9 gm/dl (11.6-16.0); MEAN CORPUSCULAR HEMOGLOBIN 27.8 pg (27-33); MEAN CORPUSCULAR HGB CONC 32.3 g/dl (32-36); MEAN PLATELET VOLUME 10.3 fl (7.4-10.4); PLATELET COUNT 356 K/uL (130-400); RED BLOOD COUNT 3.92 M/uL (3.80-5.40); WHITE BLOOD COUNT W/O DIFF 11.5 K/uL (4.2-12.2)
[2016-08-10 06:44] LABS: ANION GAP 15.6 (7-16); CARBON DIOXIDE 24.4 mmol/L (22-30); CREATININE 1.2 mg/dL (0.52-1.04)
[2016-08-10 06:54] LABS: PLATELET ESTIMATE NORMAL (NORMAL)
[2016-08-10] MEDS: NOVOLOG FLEXPEN (INSULIN ASPART) 100 UNITS/ML SQ SCH ×3 (08:20→17:44)
[2016-08-10] MEDS: FUROSEMIDE 40 MG TABLET PO SCH ×2 (08:23→10:38)
[2016-08-10] MEDS: ENOXAPARIN 40 MG/0.4 ML SYR SQ SCH ×2 (08:23→10:39)
[2016-08-10] MEDS: ASPIRIN 325 MG TAB ENTERIC-COATED PO SCH ×2 (08:24→10:38)
[2016-08-10] MEDS: MULTIVITAMINS/MINERALS TABLET PO SCH ×2 (08:24→10:37)
[2016-08-10] MEDS: CITALOPRAM 20 MG TABLET PO SCH ×2 (08:25→10:37)
[2016-08-10] MEDS: SPIRONOLACTONE 25 MG TAB PO SCH ×2 (08:25→10:37)
[2016-08-10] MEDS: LORATADINE 10 MG TABLET PO SCH ×2 (08:26→10:38)
[2016-08-10] MEDS: CARVEDILOL 12.5 MG TABLET PO SCH ×3 (08:26→22:20)
[2016-08-10] MEDS: LOSARTAN POTASSIUM 100 MG TABLET PO SCH ×2 (08:27→10:39)
[2016-08-10] MEDS: DOCUSATE SODIUM 100 MG CAPSULE PO PRN (08:30)
--- NOTE | 2016-08-10 09:47 | Physical Therapy Tx Note ---
Physical Therapy Tx Note - Treatment Note Tolerated: Good (Patient was willing to participate and demonstrated appropriate technique with ther ex despite LLE pain/tenderness. Required cueing to maintain proper breathing pattern, but could independently perform with exercises by end of session.) Total Time Spent With Patient: 25 Physical Therapy Tx Note: Detail (Patient was sitting upright in bed when PT arrived; nursing was present. Patient independently and safely moved to EOB. Transferred from EOB to commode with min A x2 using a "scoot" technique. Dependent for cleaning self after toileting, but able to stand 30 sec using standard walker with MinAx2 and CGA x1. Required 1 rest break due to LLE pain. Patient attempted to perform standing transfer using walker and MinAx2, but preferred to use her "scoot" technique to get into bed due to pain exacerbation with weight-bearing. Able to push through R LE heel to scoot herself up in bed. Nursing removed B aren wrapping and kept it off due to pitting edema with wrap. Patient then performed therapeutic exercises including: B ankle pumps x15, hip abduction with adduction pillow squeeze x10, B quad sets 2x5, and B gluteal squeezes 2x5. Included rest break between sets due to observation of SOB with ther ex. Required verbal cueing and demonstration to promote breathing throughout exercises. Able to perform proper breathing technique with 2nd set of gluteal squeezes without verbal cueing. Demonstrated improvement and tolerance with L ankle ROM. Placed pillow under L heel to help address swelling from cellulitis.) Physical Therapy Problem List: Detail (1) L lower leg pain and swelling affecting AROM of L ankle. 2) Reduced tolerance to weight-bearing activities due to pain. 3) Generalized LE deconditioning L > R due to acute dx of cellulitis 4) Lack of a HEP to return to premorbid functional status.) Physical Therapy Goals: 1) Patient will be able to achieve L AROM DF and PF WFL. 2) Patient will be able to perform HEP independently with appropriate form. 3) Patient will be able to partial weight-bear 25-50% of BW on L LE. 4) Patient will demonstrate safe transfer from bed to chair with minimal assistance x2. Physical Therapy Plan: PT M-F for general LE AROM and strengthening, desensitization exercises to reduce pain and increase tolerance to WB, WBAT in standing progressing to ambulation with or without an assistive device, and transfer training.
--- NOTE | 2016-08-10 10:08 | Physician Progress Note ---
Subjective - Date Date of Physician Progress Note: 08/10/16 - Subjective Subjective Comment: Patient states she feels about the same today. She continues to report 8/10 pain in the LLE but has been up twice to use the commode with a 2 person assist. Was able to put a little more weight on the foot today than previous days. PT/OT have been by and have worked with her yesterday and today. She continues to deny fever, chills, nausea, vomiting. Objective - Vital Signs Vital Signs: Vital Signs - Last 24 Hrs Temp Pulse Resp BP BP Pulse Ox 08/10/16 05:30 97.5 F L 81 22 135/72 92 L 08/09/16 21:00 99.0 F 83 22 128/78 92 L 08/09/16 20:06 20 08/09/16 18:00 98.1 F 85 20 125/64 92 L - General General Appearance: Alert, Oriented x3, Cooperative, No acute distress, Other ( morbid obesity) - Head Head exam: Normal inspection - Eye Eye exam: Normal appearance, PERRL Pupils: Normal accommodation - ENT ENT exam: Normal exam, Mucous membranes moist, Normal external ear exam, Normal orophraynx, TM's normal bilaterally Ear exam: Normal external inspection. negative: External canal tenderness Nasal Exam: Normal inspection. negative: Discharge, Sinus tenderness Mouth exam: Normal external inspection, Tongue normal Teeth exam: Normal inspection. negative: Dental caries Throat exam: Normal inspection. negative: Tonsillar erythema, Tonsillar exudate - Neck Neck exam: Normal inspection, Full ROM. negative: Tenderness - Respiratory Respiratory exam: Normal lung sounds bilaterally. negative: Respiratory distress - Cardiovascular Cardiovascular Exam: Regular rate, Normal rhythm, Normal heart sounds - GI/Abdominal GI/Abdominal exam: Soft, Normal bowel sounds. negative: Tenderness - Rectal Rectal exam: Deferred - exam: Deferred - Extremities Extremities exam: Normal inspection, Full ROM, Normal capillary refill, Pedal edema (2+ B/L pitting edema; stasis dermatitis ), Tenderness (TTP along LLE ), Other (left lower leg with warmth, erythema, swelling which continue to improve. induration is decreased significantly today). negative: Calf tenderness - Back Back exam: Reports: Normal inspection, Full ROM. Denies: Muscle spasm, Rash noted, Tenderness - Neurological Neurological exam: Alert, Normal gait, Oriented X3, Reflexes normal - Psychiatric Psychiatric exam: Normal affect, Normal mood - Skin Skin exam: Dry, Erythema (L and R LE), Intact, Normal color, Warm Assessment and Plan - Assessment and Plan (1) Cellulitis of left leg Current Visit: Yes Status: Acute Base Code: L03.116 - CELLULITIS OF LEFT LOWER LIMB Comment: 08/10/16: Continue to improve. Decreased erythema and swelling today with significant decrease in induration.There is also linear erythema along the folds of the left great toe. LLE doppler: femoral, saphenous, and popliteal negative for blood clot, but unable to assess from knee down. WBC count down to 11.5 today. CRP and ESR remain elevated but stable (ESR of 95 and CRP of 24.2) Patient remains afebrile - Continue IV Clindamycin 600 mg Q 8 hours with plan to transition to oral clindamycin tomorrow if continued improvement and then discharge the following day if lab work and cellulitis continue to improve. -continue clotrimazole topical in folds of feet - Will continue PO Lasix and Aldactone -continue PT/OT daily with possibility of transitioning to JESUS if still needing assistance with ambulation. - Continue to use CHRISTINE bandages on LE's. Keep elevated to help with Lymphedema. use Silvadene cream once patient's brings this in later today. - encouraged strict glucose control. - Hydrocodone 10mg does not seem to be controlling her pain as well as I would like so will do trial of oxycodone 7.5mg po q6H - Will check sed rate/crp/wbc daily. (2) Insulin dependent diabetes mellitus Current Visit: Yes Status: Acute Base Code: E11.9 - TYPE 2 DIABETES MELLITUS WITHOUT COMPLICATIONS; Z79.4 - STORAGE ADMINISTRATOR (CURRENT) USE OF INSULIN Comment: 08/10/16: Continue home medications. Strict sliding scale. Accu checks achqhs. (3) DVT prophylaxis Current Visit: Yes Status: Acute Base Code: [id number] - Comment: 08/10/16: high risk- decreased mobility, weight, h/o CVA. Lovenox 40 mg sq daily. (4) Full code status Current Visit: Yes Status: Acute Base Code: Z78.9 - OTHER SPECIFIED HEALTH STATUS Comment: 08/10/16: patient is full code. Results - Labs Result Diagrams: 08/10/16 06:20 08/10/16 06:20 Labs Last 24 Hours: Laboratory Results - last 24 hr 08/09/16 08/09/16 08/10/16 11:45 17:00 06:20 WBC 11.5 RBC 3.92 Hgb 10.9 L Hct 33.7 L MCV 86.0 MCH 27.8 MCHC 32.3 RDW 14.0 Plt Count 356 MPV 10.3 Neutrophils % 82.0 H Lymphocytes % 14.0 L Monocytes % 4.0 Eosinophils % Not Reportable Basophils % Not Reportable Platelet Estimate Normal RBC Morphology Normal ESR Sodium Potassium Chloride Carbon Dioxide Anion Gap BUN Creatinine Estimated GFR POC Glucose 205 H 226 H Random Glucose Calcium C-Reactive Protein 08/10/16 08/10/16 08/10/16 06:20 06:20 06:20 WBC RBC Hgb Hct MCV MCH MCHC RDW Plt Count MPV Neutrophils % Lymphocytes % Monocytes % Eosinophils % Basophils % Platelet Estimate RBC Morphology ESR 95 H Sodium 137 Potassium 3.8 Chloride 97 L Carbon Dioxide 24.4 Anion Gap 15.6 BUN 16 Creatinine 1.2 H Estimated GFR 51 POC Glucose Random Glucose 194 H Calcium 8.7 C-Reactive Protein 24.2 H DVT/PE Assessment - Risk for VTE Risk for VTE: No Risk Level: High Risk Assessment Date: 08/07/16 Risk Assessment Time: 11:00 VTE Orders Placed or Will Be Placed: Yes - Active Medicaitons Current Medications: Current Medications Acetaminophen (Tylenol 500mg Tab) 500 mg PO Q6H PRN PRN Reason: PAIN/TEMP Acetaminophen/Hydrocodone Bitart ([place] 10mg/325mg) 1 each PO Q6H PRN PRN Reason: Pain - Severe (8-10) Last Admin: 08/10/16 08:19 Dose: 1 each Al Hydroxide/Mg Hydroxide (Maalox) 30 ml PO Q4H PRN PRN Reason: GI UPSET Amlodipine Besylate (Norvasc) 10 mg PO DAILY [facility] Last Admin: 08/09/16 10:42 Dose: 10 mg Aspirin (Ecotrin (Ec)) 325 mg PO DAILY [facility] Last Admin: 08/10/16 08:24 Dose: 325 mg Atorvastatin Calcium (Lipitor) 40 mg PO DAILY [facility] Last Admin: 08/09/16 10:33 Dose: 40 mg Carvedilol (Coreg) 25 mg PO BID [facility] Last Admin: 08/10/16 08:26 Dose: 25 mg Citalopram Hydrobromide (Celexa) 20 mg PO DAILY [facility] Last Admin: 08/10/16 08:25 Dose: 20 mg Clotrimazole (Lotrimin Af) 1 gm TP BID [facility] Last Admin: 08/09/16 22:57 Dose: 1 gm Docusate Sodium (Colace) 100 mg PO BID PRN PRN Reason: constipation Last Admin: 08/10/16 08:30 Dose: 100 mg Enoxaparin Sodium (Lovenox) 40 mg SQ DAILY [facility] Last Admin: 08/10/16 08:23 Dose: 40 mg Furosemide (Lasix) 40 mg PO DAILY [facility] Last Admin: 08/10/16 08:23 Dose: 40 mg Clindamycin Phosphate (Cleocin 600 [id number]) 50 mls @ 100 mls/hr IVPB Q8H [facility] Last Admin: 08/10/16 04:58 Dose: 100 mls/hr Insulin Aspart (Novolog Flexpen) 1 unit SQ TIDINS [facility] PRN Reason: Protocol Last Admin: 08/10/16 08:20 Dose: 10 unit Levothyroxine Sodium (Synthroid) 75 mcg PO DAILYTHY [facility] Last Admin: 08/10/16 06:01 Dose: Not Given Loratadine (Claritin) 10 mg PO DAILY [facility] Last Admin: 08/10/16 08:26 Dose: 10 mg Losartan Potassium (Losartan Potassium) 100 mg PO DAILY [facility] Last Admin: 08/10/16 08:27 Dose: 100 mg Multivitamins/Minerals (Centrum) 1 tab PO DAILY [facility] Last Admin: 08/10/16 08:24 Dose: 1 tab Nystatin (Nystop) 15 gm TP ASDIR PRN PRN Reason: RASH Last Admin: 08/08/16 21:25 Dose: 15 gm Pantoprazole Sodium (Protonix) 40 mg PO DAILYAC [facility] Last Admin: 08/10/16 06:01 Dose: Not Given Spironolactone (Aldactone) 25 mg PO DAILY [facility] Last Admin: 08/10/16 08:25 Dose: 25 mg Trazodone HCl (Desyrel) 50 mg PO QHS [facility] Last Admin: 08/09/16 22:57 Dose: 50 mg AMI Plan - Labs Result Diagrams: 08/10/16 06:20 02/01/17 06:20
[2016-08-10] MEDS: ATORVASTATIN 20 MG TABLET PO SCH (10:38)
[2016-08-10] MEDS: CLOTRIMAZOLE 1% 30 GM CREAM TP SCH ×3 (10:39→22:21)
--- NOTE | 2016-08-10 11:37 | Occupational Therapy Tx Note ---
Occupational Therapy Tx Note - Treatment Note Tolerated: Good Total Time Spent With Patient: 15 (ADL) Occupational Therapy Treatment Note: Detail (S: Pt needing to use commode. O: Supine to sit Indly. Pt able to perform scooting pivot transfer from EOB to commode with CG assist. Pt toileted with assist to wipe. Pt was able to "lean " forward with walker during toileting hygiene. Pt able to stand with walker and performed a small "hop" on right LE to wheelchair. Pt able to partially comb hair in sitting. A: Improved mobility today with transfers, pt short of breath with activity) Occupational Therapy Problem List: Detail (1. Decreased Ind with functional mobility needed for safe and Ind self cares. 2. Decreased Ind with toileting 3. Decreased Ind with showering 4. Decreased Ind with dressing 5. Decreased overall endurance needed for safe and Ind ADLs) Occupational Therapy Goals: 1. Pt will be Ind with transfers and mobility needed to perform self care activities. 2. Pt will be Ind with toileting 3. Pt will be Ind with showering in standing 4. Pt will be Ind with total body dressing 5. Pt will demonstrate improved endurance needed for safe and Ind self cares and functional mobility Prognosis: Moderate Occupational Therapy Plan: OT 2-4 times weekly to address self cares, functional mobility and overall activity tolerance to allow safe return home with spouse.
[2016-08-10] MEDS: AMLODIPINE BESYLATE 5MG TAB PO SCH (12:00)
[2016-08-10] MEDS: OXYCODONE HCL 5 MG TABLET PO PRN ×2 (14:04→22:25)
[2016-08-10] MEDS: TRAZODONE 50 MG TABLET PO SCH (22:20)
[2016-08-10] MEDS: NYSTATIN 15 GM POWDER TP PRN (22:21)
[2016-08-11] MEDS: CLINDAMYCIN 600MG/50ML PREMIX 50 ML IVPB SCH (03:38)
[2016-08-11] MEDS: OXYCODONE HCL 5 MG TABLET PO PRN ×4 (05:11→23:24)
[2016-08-11] MEDS: PANTOPRAZOLE SODIUM 40 MG TABLET PO SCH ×2 (05:12→06:41)
[2016-08-11] MEDS: LEVOTHYROXINE SODIUM 75 MCG TABLET PO SCH ×2 (05:13→06:41)
--- NOTE | 2016-08-11 07:26 | RADIOLOGY REPORT ---
EXAM: PORTABLE CHEST HISTORY: SUBACUTE REHAB PLACEMENT. TECHNIQUE: AP semi-upright portable view of the chest was obtained. Comparison: None. FINDINGS: The heart size is probably at about the upper limits of normal allowing for the AP semi-upright positioning. No definite acute infiltrate is seen. No pleural effusion or pneumothorax evident. Some faint wire like density overlying the left paraclavicular region and also overlying the hemidiaphragm. This could just be artifact, but correlation with any overlying wire density suggested. IMPRESSION: 1. THE HEART SIZE IS PROBABLY AT ABOUT THE UPPER LIMITS OF NORMAL. 2. NO DEFINITE ACUTE INFILTRATE IS SEEN. 3. SOME WIRE LIKE DENSITY OVERLYING THE LEFT HEMITHORAX QUESTIONABLY AN ARTIFACT. JOB NUMBER: [id number] MTDD
[2016-08-11 08:10] LABS: BASO % 0.2 % (0-6); EOS % 0.6 % (0-6); GRAN % 82.7 % (47-80); HEMATOCRIT 31.8 % (35.0-47.0); HEMOGLOBIN 10.2 gm/dl (11.6-16.0); LYMPH % 8.1 % (16-45); MEAN CELL VOLUME 86.2 fl (81-97); MEAN CORPUSCULAR HEMOGLOBIN 27.6 pg (27-33); MEAN CORPUSCULAR HGB CONC 32.1 g/dl (32-36); MEAN PLATELET VOLUME 10.2 fl (7.4-10.4); MONO % 8.4 % (0-9); PLATELET COUNT 378 K/uL (130-400); RED BLOOD COUNT 3.69 M/uL (3.80-5.40); WHITE BLOOD COUNT W/O DIFF 12.5 K/uL (4.2-12.2)
[2016-08-11] MEDS: NOVOLOG FLEXPEN (INSULIN ASPART) 100 UNITS/ML SQ SCH ×3 (08:15→17:51)
[2016-08-11 08:20] LABS: ANION GAP 13.2 (7-16); CARBON DIOXIDE 24.8 mmol/L (22-30); CREATININE 1.1 mg/dL (0.52-1.04)
[2016-08-11 08:40] LABS: C-REACTIVE PROTEIN 21.6 mg/dL (0.0-0.9)
[2016-08-11] MEDS: ASPIRIN 325 MG TAB ENTERIC-COATED PO SCH (09:21)
[2016-08-11] MEDS: SPIRONOLACTONE 25 MG TAB PO SCH (09:21)
[2016-08-11] MEDS: MULTIVITAMINS/MINERALS TABLET PO SCH (09:21)
[2016-08-11] MEDS: CARVEDILOL 12.5 MG TABLET PO SCH ×2 (09:21→23:07)
[2016-08-11] MEDS: CITALOPRAM 20 MG TABLET PO SCH (09:21)
[2016-08-11] MEDS: ATORVASTATIN 20 MG TABLET PO SCH (09:21)
[2016-08-11] MEDS: AMLODIPINE BESYLATE 5MG TAB PO SCH (09:22)
[2016-08-11] MEDS: LORATADINE 10 MG TABLET PO SCH (09:22)
[2016-08-11] MEDS: FUROSEMIDE 40 MG TABLET PO SCH (09:22)
[2016-08-11] MEDS: LOSARTAN POTASSIUM 100 MG TABLET PO SCH (09:22)
[2016-08-11] MEDS: ENOXAPARIN 40 MG/0.4 ML SYR SQ SCH (09:23)
[2016-08-11] MEDS: DOCUSATE SODIUM 100 MG CAPSULE PO PRN ×2 (09:23→23:07)
[2016-08-11] MEDS: NYSTATIN 15 GM POWDER TP PRN ×2 (09:26→23:27)
--- NOTE | 2016-08-11 11:02 | Physician Progress Note ---
Subjective - Date Date of Physician Progress Note: 08/11/16 - Subjective Subjective Comment: 08/11/16- Patient continues to report pain in the LLE about the same as yesterday. She has been up with 2x assist to the bathroom several times throughout the day yesterday. Has been up with PT/OT as well and they are recommending JESUS upon discharge. Patient denies fevers, chills, increasing pain , drainage or increasing redness. Objective - Vital Signs Vital Signs: Vital Signs - Last 24 Hrs Temp Pulse Resp BP BP BP Pulse Ox 08/11/16 09:34 98.2 F 82 22 131/74 96 08/11/16 09:23 97.5 F L 132/76 08/11/16 02:00 97.5 F L 88 25 H 132/76 93 L 08/10/16 21:00 22 - General General Appearance: Alert, Oriented x3, Cooperative, No acute distress, Other ( morbid obesity) - Head Head exam: Normal inspection - Eye Eye exam: Normal appearance, PERRL Pupils: Normal accommodation - ENT ENT exam: Normal exam, Mucous membranes moist, Normal external ear exam, Normal orophraynx, TM's normal bilaterally Ear exam: Normal external inspection. negative: External canal tenderness Nasal Exam: Normal inspection. negative: Discharge, Sinus tenderness Mouth exam: Normal external inspection, Tongue normal Teeth exam: Normal inspection. negative: Dental caries Throat exam: Normal inspection. negative: Tonsillar erythema, Tonsillar exudate - Neck Neck exam: Normal inspection, Full ROM. negative: Tenderness - Respiratory Respiratory exam: Normal lung sounds bilaterally. negative: Respiratory distress - Cardiovascular Cardiovascular Exam: Regular rate, Normal rhythm, Normal heart sounds - GI/Abdominal GI/Abdominal exam: Soft, Normal bowel sounds. negative: Tenderness - Rectal Rectal exam: Deferred - exam: Deferred - Extremities Extremities exam: Normal inspection, Full ROM, Normal capillary refill, Pedal edema (2+ B/L pitting edema; stasis dermatitis ), Tenderness (TTP along LLE ), Other (left lower leg with warmth, erythema, swelling which continue to improve. induration resolved). negative: Calf tenderness - Back Back exam: Reports: Normal inspection, Full ROM. Denies: Muscle spasm, Rash noted, Tenderness - Neurological Neurological exam: Alert, Normal gait, Oriented X3, Reflexes normal - Psychiatric Psychiatric exam: Normal affect, Normal mood - Skin Skin exam: Dry, Erythema (L and R LE), Intact, Normal color, Warm Assessment and Plan - Assessment and Plan (1) Cellulitis of left leg Current Visit: Yes Status: Acute Base Code: L03.116 - CELLULITIS OF LEFT LOWER LIMB Comment: 08/11/16: Continues to improve. Decreased erythema and swelling today along with resolution of induration.There is also linear erythema along the folds of the left great toe. LLE doppler: femoral, saphenous, and popliteal negative for blood clot, but unable to assess from knee down. WBC count stable at 12.5 today. CRP and ESR remain elevated but stable. Patient remains afebrile -transition to Clindamycin 300 mg Q6H hours with plan to transition to [place] JESUS tomorrow -continue clotrimazole topical in folds of feet - Will continue PO Lasix and Aldactone -continue PT/OT daily with transition to JESUS. - Continue to use CHRISTINE bandages on LE's. Keep elevated to help with Lymphedema. use Silvadene cream once patient's brings this in later today. - encouraged strict glucose control. - continue oxycodone 7.5mg po q6H - Will check sed rate/crp/wbc daily. (2) Insulin dependent diabetes mellitus Current Visit: Yes Status: Acute Base Code: E11.9 - TYPE 2 DIABETES MELLITUS WITHOUT COMPLICATIONS; Z79.4 - VAN HELPER (CURRENT) USE OF INSULIN Comment: 08/11/16: Continue home medications. Strict sliding scale. Accu checks achqhs. (3) DVT prophylaxis Current Visit: Yes Status: Acute Base Code: [id number] - Comment: 08/11/16: high risk- decreased mobility, weight, h/o CVA. Lovenox 40 mg sq daily. (4) Full code status Current Visit: Yes Status: Acute Base Code: Z78.9 - OTHER SPECIFIED HEALTH STATUS Comment: 08/11/16: patient is full code. Results - Labs Result Diagrams: 08/11/16 07:45 08/11/16 07:45 Labs Last 24 Hours: Laboratory Results - last 24 hr 08/10/16 08/10/16 08/10/16 12:11 16:45 21:41 WBC RBC Hgb Hct MCV MCH MCHC RDW Plt Count MPV Gran % Lymphocytes % Monocytes % Eosinophils % Basophils % Sodium Potassium Chloride Carbon Dioxide Anion Gap BUN Creatinine Estimated GFR POC Glucose 170 H 298 H 194 H Random Glucose Calcium C-Reactive Protein 08/11/16 08/11/16 08/11/16 07:21 07:45 07:45 WBC 12.5 H RBC 3.69 L Hgb 10.2 L Hct 31.8 L MCV 86.2 MCH 27.6 MCHC 32.1 RDW 14.0 Plt Count 378 MPV 10.2 Gran % 82.7 H Lymphocytes % 8.1 L Monocytes % 8.4 Eosinophils % 0.6 Basophils % 0.2 Sodium 133 L Potassium 3.8 Chloride 95 L Carbon Dioxide 24.8 Anion Gap 13.2 BUN 15 Creatinine 1.1 H Estimated GFR 56 POC Glucose 218 H Random Glucose 234 H Calcium 8.5 C-Reactive Protein 21.6 H DVT/PE Assessment - Risk for VTE Risk for VTE: No Risk Level: High Risk Assessment Date: 08/07/16 Risk Assessment Time: 11:00 VTE Orders Placed or Will Be Placed: Yes - Active Medicaitons Current Medications: Current Medications Acetaminophen (Tylenol 500mg Tab) 500 mg PO Q6H PRN PRN Reason: PAIN/TEMP Acetaminophen/Hydrocodone Bitart ([place] 10mg/325mg) 1 each PO Q6H PRN PRN Reason: Pain - Severe (8-10) Last Admin: 08/10/16 08:19 Dose: 1 each Al Hydroxide/Mg Hydroxide (Maalox) 30 ml PO Q4H PRN PRN Reason: GI UPSET Last Admin: 08/11/16 09:23 Dose: 30 ml Amlodipine Besylate (Norvasc) 10 mg PO DAILY [facility] Last Admin: 08/11/16 09:22 Dose: 10 mg Aspirin (Ecotrin (Ec)) 325 mg PO DAILY [facility] Last Admin: 08/11/16 09:21 Dose: 325 mg Atorvastatin Calcium (Lipitor) 40 mg PO DAILY [facility] Last Admin: 08/11/16 09:21 Dose: 40 mg Carvedilol (Coreg) 25 mg PO BID [facility] Last Admin: 08/11/16 09:21 Dose: 25 mg Citalopram Hydrobromide (Celexa) 20 mg PO DAILY [facility] Last Admin: 08/11/16 09:21 Dose: 20 mg Clindamycin HCl (Cleocin) 300 mg PO Q6H [facility] Clotrimazole (Lotrimin Af) 1 gm TP BID [facility] Last Admin: 08/10/16 22:10 Dose: 1 gm Docusate Sodium (Colace) 100 mg PO BID PRN PRN Reason: constipation Last Admin: 08/11/16 09:23 Dose: 100 mg Enoxaparin Sodium (Lovenox) 40 mg SQ DAILY [facility] Last Admin: 08/11/16 09:23 Dose: 40 mg Furosemide (Lasix) 40 mg PO DAILY [facility] Last Admin: 08/11/16 09:22 Dose: 40 mg Insulin Aspart (Novolog Flexpen) 1 unit SQ TIDINS [facility] PRN Reason: Protocol Last Admin: 08/11/16 08:15 Dose: 12 unit Levothyroxine Sodium (Synthroid) 75 mcg PO DAILYTHY [facility] Last Admin: 08/11/16 06:41 Dose: Not Given Loratadine (Claritin) 10 mg PO DAILY [facility] Last Admin: 08/11/16 09:22 Dose: 10 mg Losartan Potassium (Losartan Potassium) 100 mg PO DAILY [facility] Last Admin: 08/11/16 09:22 Dose: 100 mg Multivitamins/Minerals (Centrum) 1 tab PO DAILY [facility] Last Admin: 08/11/16 09:21 Dose: 1 tab Nystatin (Nystop) 15 gm TP ASDIR PRN PRN Reason: RASH Last Admin: 08/11/16 09:26 Dose: 15 gm Oxycodone HCl (Oxy Ir) 7.5 mg PO Q6HR PRN PRN Reason: Pain - Severe (8-10) Last Admin: 08/11/16 05:11 Dose: 7.5 mg Pantoprazole Sodium (Protonix) 40 mg PO DAILYAC [facility] Last Admin: 08/11/16 06:41 Dose: Not Given Spironolactone (Aldactone) 25 mg PO DAILY [facility] Last Admin: 08/11/16 09:21 Dose: 25 mg Trazodone HCl (Desyrel) 50 mg PO QHS [facility] Last Admin: 08/10/16 22:20 Dose: 50 mg AMI Plan - Labs Result Diagrams: 08/11/16 07:45 08/11/16 07:45
[2016-08-11] MEDS: CLOTRIMAZOLE 1% 30 GM CREAM TP SCH ×2 (12:17→23:27)
[2016-08-11] MEDS: CLINDAMYCIN 150 MG CAP PO SCH ×3 (12:22→23:06)
--- NOTE | 2016-08-11 15:35 | Physical Therapy Tx Note ---
Physical Therapy Tx Note - Treatment Note Tolerated: Fair Total Time Spent With Patient: 20 Physical Therapy Tx Note: Detail (Pt in bed, awake, upon arrival. Reported pain in L foot, nrsg just gave pain med. Agreeable for exercise. Left foot and lower leg w/significant edema, redness. Performed 10 reps each of B ankle pumps, B toe curls/extn, heel slides, hip abduction, hip adduction w/pillow, SLR. Somewhat SOB w/exercise, VC's to inhale through nose, exhale through pursed lips. Pt declined getting OOB; she was encouraged to try to sit up for lunch. Discussed car transfer planned for tomorrow: has [employer] truck. There is a handhold above the door to pull up on. She may need a footstool to get up into the truck. Good exercise performance, but fatigued. Left in bed w/call light in reach.) Physical Therapy Problem List: Detail (1) L lower leg pain and swelling affecting AROM of L ankle. 2) Reduced tolerance to weight-bearing activities due to pain. 3) Generalized LE deconditioning L > R due to acute dx of cellulitis 4) Lack of a HEP to return to premorbid functional status.) Physical Therapy Goals: 1) Patient will be able to achieve L AROM DF and PF WFL. 2) Patient will be able to perform HEP independently with appropriate form. 3) Patient will be able to partial weight-bear 25-50% of BW on L LE. 4) Patient will demonstrate safe transfer from bed to chair with minimal assistance x2. Prognosis: Good Physical Therapy Plan: Anticipate discharge/transfer to [place] for subacute rehab Saturday 08/12. Will assist patient w/vehicle transfer for transport.
[2016-08-11] MEDS: TRAZODONE 50 MG TABLET PO SCH (23:06)
[2016-08-12] MEDS: HYDROCODONE/APAP 10/325 TABLET PO PRN (02:06)
[2016-08-12] MEDS: CLINDAMYCIN 150 MG CAP PO SCH (07:22)
[2016-08-12] MEDS: OXYCODONE HCL 5 MG TABLET PO PRN (07:22)
[2016-08-12] MEDS: LEVOTHYROXINE SODIUM 75 MCG TABLET PO SCH (07:23)
[2016-08-12] MEDS: PANTOPRAZOLE SODIUM 40 MG TABLET PO SCH (07:23)
[2016-08-12 07:50] LABS: BASO % 0.2 % (0-6); EOS % 0.7 % (0-6); GRAN % 77.3 % (47-80); HEMATOCRIT 31.5 % (35.0-47.0); HEMOGLOBIN 9.8 gm/dl (11.6-16.0); LYMPH % 10.8 % (16-45); MEAN CELL VOLUME 87.5 fl (81-97); MEAN CORPUSCULAR HEMOGLOBIN 27.2 pg (27-33); MEAN CORPUSCULAR HGB CONC 31.1 g/dl (32-36); MEAN PLATELET VOLUME 9.9 fl (7.4-10.4); PLATELET COUNT 352 K/uL (130-400); RED CELL DISTRIBUTION WIDTH 14.1 % (11.5-14.5); WHITE BLOOD COUNT W/O DIFF 11.2 K/uL (4.2-12.2)
[2016-08-12 08:06] LABS: ANION GAP 13.3 (7-16); CARBON DIOXIDE 25.7 mmol/L (22-30); CREATININE 1.1 mg/dL (0.52-1.04)
[2016-08-12] MEDS: NOVOLOG FLEXPEN (INSULIN ASPART) 100 UNITS/ML SQ SCH (08:19)
[2016-08-12 08:41] LABS: C-REACTIVE PROTEIN 19.5 mg/dL (0.0-0.9)
--- NOTE | 2016-08-12 09:31 | Discharge Summary ---
Providers Discharge Summary Date: 08/12/16 Date of admission: 08/07/16 05:18 Expected Date of Discharge: 08/12/16 Attending physician: JENNY LANDEROS Primary care physician: NANCY AGUILAR MD Physical Exam - Vital Signs Vital Signs: Vital Signs - Last 24 Hrs Temp Pulse Resp BP BP Pulse Ox 08/12/16 08:52 86 22 126/69 95 08/12/16 02:00 98.4 F 94 H 18 154/88 94 L 08/11/16 18:00 88 18 125/78 97 08/11/16 09:34 98.2 F 82 22 131/74 96 - General General Appearance: Alert, Oriented x3, Cooperative, No acute distress, Other ( morbid obesity) - Head Head exam: Normal inspection - Eye Eye exam: Normal appearance, PERRL Pupils: Normal accommodation - ENT ENT exam: Normal exam, Mucous membranes moist, Normal external ear exam, Normal orophraynx, TM's normal bilaterally Ear exam: Normal external inspection. negative: External canal tenderness Nasal Exam: Normal inspection. negative: Discharge, Sinus tenderness Mouth exam: Normal external inspection, Tongue normal Teeth exam: Normal inspection. negative: Dental caries Throat exam: Normal inspection. negative: Tonsillar erythema, Tonsillar exudate - Neck Neck exam: Normal inspection, Full ROM. negative: Tenderness - Respiratory Respiratory exam: Normal lung sounds bilaterally. negative: Respiratory distress - Cardiovascular Cardiovascular Exam: Regular rate, Normal rhythm, Normal heart sounds - GI/Abdominal GI/Abdominal exam: Soft, Normal bowel sounds. negative: Tenderness - Rectal Rectal exam: Deferred - exam: Deferred - Extremities Extremities exam: Normal inspection, Full ROM, Normal capillary refill, Pedal edema (2+ B/L pitting edema; stasis dermatitis ), Tenderness (TTP along LLE ), Other (left lower leg with warmth, erythema, swelling which continue to improve. induration resolved). negative: Calf tenderness - Back Back exam: Reports: Normal inspection, Full ROM. Denies: Muscle spasm, Rash noted, Tenderness - Neurological Neurological exam: Alert, Normal gait, Oriented X3, Reflexes normal - Psychiatric Psychiatric exam: Normal affect, Normal mood - Skin Skin exam: Dry, Erythema (L and R LE), Intact, Normal color, Warm Hospitalization - Hospitalization Admission Diagnosis: cellulitis left lower extremity; morbid obesity; diabetes - Problem List/Discharge Diagnosis (1) Cellulitis of left leg Current Visit: Yes Status: Acute Base Code: L03.116 - CELLULITIS OF LEFT LOWER LIMB Comment: 08/12/16: Continues to improve. Erythema and tenderness improving slowly. The linear erythema along the toe folds is improving as well with the clotrimazole. LLE doppler: femoral, saphenous, and popliteal negative for blood clot, but unable to assess from knee down. WBC count stable at 11.2 today. CRP trending down to 19.5 from 24.2 two days ago. Patient remains afebrile -continue Clindamycin 300 mg PO Q6H hours for 6 more days (through 08/17/16) - plan to transition to [facility] today -will do one script for a week of oxycodone 7.5mg PO q6H and then she will transition back to her normal dose of hydrocodone. 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 She voiced her understanding. -continue clotrimazole topical in folds of feet - Will continue PO Lasix and Aldactone -continue PT/OT daily at [facility] - Continue to use CHRISTINE bandages on LE's. Keep elevated to help with Lymphedema. use Silvadene cream - encouraged strict glucose control. -will need follow up with PCP in about 1-2 weeks once she is discharged from [facility]. Will likely need repeat labs at that time. 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 Strict sliding scale. Accu checks achqhs. (3) DVT prophylaxis Current Visit: Yes Status: Acute Base Code: [id number] - Comment: 08/12/16: Patient was at high risk- decreased mobility, weight, h/o CVA. - Lovenox 40 mg sq given daily. (4) Full code status Current Visit: Yes Status: Acute Base Code: Z78.9 - OTHER SPECIFIED HEALTH STATUS Comment: 08/12/16: patient is full code. - Hospitalization Course Disposition: [facility] Hospital Course: 46 yo female admitted for cellulitis of LLE. PMHx of morbid obesity, IDDM type 2, hypertension, hyperlipidemia, hypothyroidism, seasonal allergies, depression , CVA in 2014 (deficits include declined eye sight and difficulty w/ comprehending), h/o DVT, history of LE cellulitis (patient believes last treatment for cellulitis was this past fall at [facility] wound clinic). Patient is A&O to person, place, date during exam though states her knows her health history better. Patient states that her and her have been sick for the past two weeks. Symptoms include N/V, diarrhea, abdominal cramping. Aggravate by nothing. Alleviated on it's own. Her last episode of vomiting was Monday. Patient's symptoms resolved, however she began to notice LLE swelling and redness. Noting this, she had her bring her to the ER. Her typically wraps both LE's, though for the past week or two, he's been sick and has not been doing this. Upon presentation to the ER, VSS. WBC 12.2, hgb 10.7, hct 32.7, plt 242, sodium 136, potassium 3.9, BUN 26, Cr. 1.3, glucose 174, lactic acid 1.3, troponin neg, BNP 815. UA negative for infection. LLE u/s ordered, however unable to be performed until monday. Noting LLE edema and erythema, patient admitted for IV antibiotics and further medical management. 08/07/16- This morning, patient is lying in bed comfortably with LE's elevated. She denies fever, chills, n/v, abd pain, cough, sob, cp, dysuria, change in bowel or bladder functions, or headache. She admits to fatigue, contributing this to a long night in the ER. Aside from LLE edema/erythema, her other symptoms have resolved. She states she's had two episodes of lower extremity cellulitis similar to this in the past. Per patient, 6-7 years ago she was admitted to [facility] wound clinic and then this past fall at [facility], in [place], wound clinic. No recent travel or change in her medications. Sick contact includes her w/ a GI bug. 08/08/16- pt c/o LLE pain. she believes this was worsened follow doppler of area. swelling/erythema have improved with CHRISTINE bandage. her is bring sulfidine cream later today afebrile, no n/v/d/abd pain/cough. no new skin changes 08/09/16- Patient is lying in bed at time of exam. She continues to report pain in the LLE about the same as yesterday but she thinks the redness and swelling have improved. She is still having a difficult time bearing weight on the leg 2/ 2 pain. She denies fever, chills, or further N/V. 08/10/16-Patient states she feels about the same today. She continues to report 8 /10 pain in the LLE but has been up twice to use the commode with a 2 person assist. Was able to put a little more weight on the foot today than previous days. PT/OT have been by and have worked with her yesterday and today. She continues to deny fever, chills, nausea, vomiting. 08/11/16- Patient continues to report pain in the LLE about the same as yesterday. She has been up with 2x assist to the bathroom several times throughout the day yesterday. Has been up with PT/OT as well and they are recommending JESUS upon discharge. Patient denies fevers, chills, increasing pain , drainage or increasing redness. 08/12/16- Patient states she is feeling about the same as yesterday. Getting up with therapy and nursing assistance but continuing to have the pain in the LLE with weight bearing. She says the oxycodone is working a little better than the hydrocodone had been for the pain. Bringing it down to a tolerable level. She denies fever, chills, shortness of breath. She is ready to discharge today to [facility] for subacute rehab PCP: Nancy Butler M.D. Procedures: Imaging and X-Rays 08/10/16 13:36 CHEST AP or PA ONLY [RAD] Stat Abnormal Labs: Abnormal Lab Results 08/07/16 08/07/16 08/07/16 Range/Units 06:40 07:45 11:50 WBC (4.2-12.2) K/uL RBC (3.80-5.40) M/uL Hgb (11.6-16.0) gm/dl Hct (35.0-47.0) % MCHC (32-36) g/dl MPV (7.4-10.4) fl Gran % (47-80) % Neutrophils % (47-80) % Lymphocytes % (16-45) % Monocytes % (0-9) % ESR (0-20) mm/hr Sodium (136-145) mmol/L Chloride (98-107) mmol/L Creatinine (0.52-1.04) mg/dL POC Glucose 207 H 191 H (70-110) mg/dL Random Glucose (70-110) mg/dL Calcium (8.5-10.1) mg/dL C-Reactive Protein (0.0-0.9) mg/dL NT-Pro-B Natriuret Pep 815.00 H (<125) pg/mL 08/07/16 08/08/16 08/08/16 Range/Units 17:00 06:00 06:00 WBC (4.2-12.2) K/uL RBC 3.43 L (3.80-5.40) M/uL Hgb 9.5 L (11.6-16.0) gm/dl Hct 29.9 L (35.0-47.0) % MCHC 31.8 L (32-36) g/dl MPV 10.9 H (7.4-10.4) fl Gran % (47-80) % Neutrophils % (47-80) % Lymphocytes % 10.8 L (16-45) % Monocytes % 11.3 H (0-9) % ESR 94 H (0-20) mm/hr Sodium (136-145) mmol/L Chloride (98-107) mmol/L Creatinine (0.52-1.04) mg/dL POC Glucose 167 H (70-110) mg/dL Random Glucose (70-110) mg/dL Calcium (8.5-10.1) mg/dL C-Reactive Protein (0.0-0.9) mg/dL NT-Pro-B Natriuret Pep (<125) pg/mL 08/08/16 08/08/16 08/08/16 Range/Units 06:00 06:30 07:45 WBC (4.2-12.2) K/uL RBC (3.80-5.40) M/uL Hgb (11.6-16.0) gm/dl Hct (35.0-47.0) % MCHC (32-36) g/dl MPV (7.4-10.4) fl Gran % (47-80) % Neutrophils % (47-80) % Lymphocytes % (16-45) % Monocytes % (0-9) % ESR (0-20) mm/hr Sodium (136-145) mmol/L Chloride (98-107) mmol/L Creatinine 1.2 H (0.52-1.04) mg/dL POC Glucose 179 H (70-110) mg/dL Random Glucose 183 H (70-110) mg/dL Calcium (8.5-10.1) mg/dL C-Reactive Protein 22.6 H (0.0-0.9) mg/dL NT-Pro-B Natriuret Pep (<125) pg/mL 08/08/16 08/08/16 08/09/16 Range/Units 11:30 17:00 06:05 WBC 13.2 H (4.2-12.2) K/uL RBC 3.49 L (3.80-5.40) M/uL Hgb 9.8 L (11.6-16.0) gm/dl Hct 29.9 L (35.0-47.0) % MCHC (32-36) g/dl MPV 10.5 H (7.4-10.4) fl Gran % (47-80) % Neutrophils % (47-80) % Lymphocytes % (16-45) % Monocytes % (0-9) % ESR (0-20) mm/hr Sodium (136-145) mmol/L Chloride (98-107) mmol/L Creatinine (0.52-1.04) mg/dL POC Glucose 219 H 235 H (70-110) mg/dL Random Glucose (70-110) mg/dL Calcium (8.5-10.1) mg/dL C-Reactive Protein (0.0-0.9) mg/dL NT-Pro-B Natriuret Pep (<125) pg/mL 08/09/16 08/09/16 08/09/16 Range/Units 06:05 06:05 06:05 WBC (4.2-12.2) K/uL RBC (3.80-5.40) M/uL Hgb (11.6-16.0) gm/dl Hct (35.0-47.0) % MCHC (32-36) g/dl MPV (7.4-10.4) fl Gran % (47-80) % Neutrophils % (47-80) % Lymphocytes % (16-45) % Monocytes % (0-9) % ESR 98 H (0-20) mm/hr Sodium (136-145) mmol/L Chloride (98-107) mmol/L Creatinine 1.1 H (0.52-1.04) mg/dL POC Glucose (70-110) mg/dL Random Glucose 200 H (70-110) mg/dL Calcium 8.4 L (8.5-10.1) mg/dL C-Reactive Protein 22.8 H (0.0-0.9) mg/dL NT-Pro-B Natriuret Pep (<125) pg/mL 08/09/16 08/09/16 08/10/16 Range/Units 11:45 17:00 06:20 WBC (4.2-12.2) K/uL RBC (3.80-5.40) M/uL Hgb 10.9 L (11.6-16.0) gm/dl Hct 33.7 L (35.0-47.0) % MCHC (32-36) g/dl MPV (7.4-10.4) fl Gran % (47-80) % Neutrophils % 82.0 H (47-80) % Lymphocytes % 14.0 L (16-45) % Monocytes % (0-9) % ESR (0-20) mm/hr Sodium (136-145) mmol/L Chloride (98-107) mmol/L Creatinine (0.52-1.04) mg/dL POC Glucose 205 H 226 H (70-110) mg/dL Random Glucose (70-110) mg/dL Calcium (8.5-10.1) mg/dL C-Reactive Protein (0.0-0.9) mg/dL NT-Pro-B Natriuret Pep (<125) pg/mL 08/10/16 08/10/16 08/10/16 Range/Units 06:20 06:20 06:20 WBC (4.2-12.2) K/uL RBC (3.80-5.40) M/uL Hgb (11.6-16.0) gm/dl Hct (35.0-47.0) % MCHC (32-36) g/dl MPV (7.4-10.4) fl Gran % (47-80) % Neutrophils % (47-80) % Lymphocytes % (16-45) % Monocytes % (0-9) % ESR 95 H (0-20) mm/hr Sodium (136-145) mmol/L Chloride 97 L (98-107) mmol/L Creatinine 1.2 H (0.52-1.04) mg/dL POC Glucose (70-110) mg/dL Random Glucose 194 H (70-110) mg/dL Calcium (8.5-10.1) mg/dL C-Reactive Protein 24.2 H (0.0-0.9) mg/dL NT-Pro-B Natriuret Pep (<125) pg/mL 08/10/16 08/10/16 08/10/16 Range/Units 12:11 16:45 21:41 WBC (4.2-12.2) K/uL RBC (3.80-5.40) M/uL Hgb (11.6-16.0) gm/dl Hct (35.0-47.0) % MCHC (32-36) g/dl MPV (7.4-10.4) fl Gran % (47-80) % Neutrophils % (47-80) % Lymphocytes % (16-45) % Monocytes % (0-9) % ESR (0-20) mm/hr Sodium (136-145) mmol/L Chloride (98-107) mmol/L Creatinine (0.52-1.04) mg/dL POC Glucose 170 H 298 H 194 H (70-110) mg/dL Random Glucose (70-110) mg/dL Calcium (8.5-10.1) mg/dL C-Reactive Protein (0.0-0.9) mg/dL NT-Pro-B Natriuret Pep (<125) pg/mL 08/11/16 08/11/16 08/11/16 Range/Units 07:21 07:45 07:45 WBC 12.5 H (4.2-12.2) K/uL RBC 3.69 L (3.80-5.40) M/uL Hgb 10.2 L (11.6-16.0) gm/dl Hct 31.8 L (35.0-47.0) % MCHC (32-36) g/dl MPV (7.4-10.4) fl Gran % 82.7 H (47-80) % Neutrophils % (47-80) % Lymphocytes % 8.1 L (16-45) % Monocytes % (0-9) % ESR (0-20) mm/hr Sodium 133 L (136-145) mmol/L Chloride 95 L (98-107) mmol/L Creatinine 1.1 H (0.52-1.04) mg/dL POC Glucose 218 H (70-110) mg/dL Random Glucose 234 H (70-110) mg/dL Calcium (8.5-10.1) mg/dL C-Reactive Protein 21.6 H (0.0-0.9) mg/dL NT-Pro-B Natriuret Pep (<125) pg/mL 08/11/16 08/11/16 08/12/16 Range/Units 11:54 17:07 07:20 WBC (4.2-12.2) K/uL RBC 3.60 L (3.80-5.40) M/uL Hgb 9.8 L (11.6-16.0) gm/dl Hct 31.5 L (35.0-47.0) % MCHC 31.1 L (32-36) g/dl MPV (7.4-10.4) fl Gran % (47-80) % Neutrophils % (47-80) % Lymphocytes % 10.8 L (16-45) % Monocytes % 11.0 H (0-9) % ESR (0-20) mm/hr Sodium (136-145) mmol/L Chloride (98-107) mmol/L Creatinine (0.52-1.04) mg/dL POC Glucose 236 H 247 H (70-110) mg/dL Random Glucose (70-110) mg/dL Calcium (8.5-10.1) mg/dL C-Reactive Protein (0.0-0.9) mg/dL NT-Pro-B Natriuret Pep (<125) pg/mL 08/12/16 Range/Units 07:20 WBC (4.2-12.2) K/uL RBC (3.80-5.40) M/uL Hgb (11.6-16.0) gm/dl Hct (35.0-47.0) % MCHC (32-36) g/dl MPV (7.4-10.4) fl Gran % (47-80) % Neutrophils % (47-80) % Lymphocytes % (16-45) % Monocytes % (0-9) % ESR (0-20) mm/hr Sodium 133 L (136-145) mmol/L Chloride 94 L (98-107) mmol/L Creatinine 1.1 H (0.52-1.04) mg/dL POC Glucose (70-110) mg/dL Random Glucose 265 H (70-110) mg/dL Calcium 8.3 L (8.5-10.1) mg/dL C-Reactive Protein 19.5 H (0.0-0.9) mg/dL NT-Pro-B Natriuret Pep (<125) pg/mL Condition at Discharge: (2) Stable Discharge Medications - Discharge Medications Prescriptions: Clindamycin HCl [Cleocin HCl] 300 mg PO Q6HR #24 capsule Oxycodone HCl/Acetaminophen [Oxycodone/Acetaminophen 7.5mg/325mg] 1 tab PO Q6H PRN #24 tab PRN Reason: Pain - Severe (8-10) Home Medications: Ambulatory Orders Amlodipine Besylate [Norvasc] 10 mg PO DAILY 04/06/14 [Last Taken 08/06/16] Atorvastatin Calcium [Lipitor] 40 mg PO DAILY 04/06/14 [Last Taken 08/06/16] Carvedilol 25 mg PO BID 04/06/14 [Last Taken 08/06/16] Citalopram Hydrobromide [Citalopram HBr] 40 mg PO DAILY 04/06/14 [Last Taken ] Furosemide 40 mg PO DAILY 04/06/14 [Last Taken 08/06/16] Levothyroxine Sodium 75 mcg PO DAILY 04/06/14 [Last Taken 08/06/16] Losartan Potassium 100 mg PO DAILY 04/06/14 [Last Taken 08/06/16] Spironolactone 25 mg PO DAILY 04/06/14 [Last Taken 08/06/16] Aspirin [Ecotrin] 325 mg PO DAILY 11/30/14 [Last Taken 08/06/16] Loratadine [Claritin] 10 mg PO DAILY 11/30/14 [Last Taken 08/06/16] Trazodone HCl [Desyrel] 200 mg PO QHS 11/30/14 [Last Taken 08/06/16] Multivitamin [Multi-Vitamin Daily] 1 tab PO DAILY 01/25/15 [Last Taken 08/06/16] Omeprazole 20 mg PO DAILY 08/07/16 [Last Taken 08/06/16] Clindamycin HCl [Cleocin HCl] 300 mg PO Q6HR #24 capsule 08/12/16 [Last Taken Unknown] Oxycodone HCl/Acetaminophen [Oxycodone/Acetaminophen 7.5mg/325mg] 1 tab PO Q6H PRN #24 tab 08/12/16 [Last Taken Unknown] Discharge Plan - Discharge Instructions Activity at Discharge: As Per Physical Therapy Diet at Discharge: Diabetic Diet Wound Primary Dressing Type: Silver Dressing Additional Instructions: Continue Clindamycin 300mg PO Q6H for 6 more days May use the oxycodone 7.5mg PO Q6H prn severe pain. Do not use hydrocodone at same time that you are taking the oxycodone. Follow up with Primary care in 1-2 weeks Please call with any questions or concerns
[2016-08-12] MEDS: ATORVASTATIN 20 MG TABLET PO SCH (09:56)
[2016-08-12] MEDS: CARVEDILOL 12.5 MG TABLET PO SCH (09:56)
[2016-08-12] MEDS: MULTIVITAMINS/MINERALS TABLET PO SCH (09:56)
[2016-08-12] MEDS: FUROSEMIDE 40 MG TABLET PO SCH (10:00)
[2016-08-12] MEDS: DOCUSATE SODIUM 100 MG CAPSULE PO PRN (10:00)
[2016-08-12] MEDS: LOSARTAN POTASSIUM 100 MG TABLET PO SCH (10:00)
[2016-08-12] MEDS: ENOXAPARIN 40 MG/0.4 ML SYR SQ SCH (10:01)
[2016-08-12] MEDS: SPIRONOLACTONE 25 MG TAB PO SCH (10:01)
[2016-08-12] MEDS: LORATADINE 10 MG TABLET PO SCH (10:01)
[2016-08-12] MEDS: AMLODIPINE BESYLATE 5MG TAB PO SCH (10:02)
[2016-08-12] MEDS: ASPIRIN 325 MG TAB ENTERIC-COATED PO SCH (10:02)
[2016-08-12] MEDS: CITALOPRAM 20 MG TABLET PO SCH (10:02)
[2016-08-12] MEDS: CLOTRIMAZOLE 1% 30 GM CREAM TP SCH (10:03)
== END 2016-08-12 11:04 | DRG 603 ==
LOC: ER 03:12 → MEDSURG 05:18
PROVIDERS: ADMIT Family Medicine; ATTEND Family Medicine
DX: L03.116 Cellulitis of left lower limb (principal); E66.01 Morbid (severe) obesity due to excess calories; I10 Essential (primary) hypertension; E11.9 Type 2 diabetes mellitus without complications; Z79.4 Long term (current) use of insulin; E78.5 Hyperlipidemia, unspecified; E03.9 Hypothyroidism, unspecified; I69.898 Other sequelae of other cerebrovascular disease; I69.819 Unspecified symptoms and signs involving cognitive functions following other cerebrovascular disease; H53.9 Unspecified visual disturbance; Z86.718 Personal history of other venous thrombosis and embolism; Z78.9 Other specified health status
CPT/HCPCS: 99285 ×2; 96365; 96375; 83605; 82800; 84484; 80048; 82009; 81003; 85027; J2270; 36416; 71010; 82948; 83880; 85025; 85651; 86140; 97110; 97161; 97165; 97535; 99223; 99233; 99239; J1650